=== PATIENT | female | born 1945 | race Caucasian/White ===

== ENCOUNTER 2021-06-22 14:18 | Outpatient (REF) | payer MEDICARE, SELFPAY ==
--- NOTE | ~2021-06-22 | US_ITS ---
EXAMINATION: US THYROID CLINICAL INFORMATION: Pabxno-[id number] diffuse (endemic) goiter. COMPARISON: None TECHNIQUE: Linear transducer grayscale and color Doppler examination with attention to the region of the thyroid. FINDINGS: SIZE: Measurements of the thyroid lobes and nodules are given in sagittal, anteroposterior and transverse dimensions respectively. Right Thyroid Lobe: 3.8 x 1.4 x 1.2 cm, volume 3.3 mL. Parenchyma: The gland echotexture is heterogeneous. Thyroid vascularity is increased. Left Thyroid Lobe: 3.7 x 1.0 x 1.4 cm, volume 2.7 mL. Parenchyma: The gland echotexture is heterogeneous. Thyroid vascularity is increased. Isthmus: 0.14 cm in maximum AP dimension. Estimated total number of nodules greater than or equal to 1 cm: 1. Back Wedger nodules are described as follows: 1. Location: Left inferior. Size: 1.2 x 0.6 x 0.7 cm, volume 0.25 mL. Nodule characteristics: Composition: Mixed cystic and solid (1). Echogenicity: Very hypoechoic (3). Shape: Not taller than wide (0). Margins: Smooth (0). Echogenic Foci: Punctate echogenic foci (3). ACR TI-RADS total points: 7 ACR TI-RADS category: 5 2. Location: Left inferior medial. Size: 0.8 x 0.6 x 0.6 cm, volume 0.14 mL. Nodule characteristics: Composition: Solid (2). Echogenicity: Hyperechoic (1). Shape: Not taller than wide (0). Margins: Smooth (0). Echogenic Foci: Punctate echogenic foci (3). ACR TI-RADS total points: 6 ACR TI-RADS category: 4 3. Location: Left inferior medial. Size: 0.6 x 0.3 x 0.4 cm, volume 0.04 mL. Nodule characteristics: Composition: Mixed cystic and solid (1). Echogenicity: Cannot be determined (1). Shape: Not taller than wide (0). Margins: Smooth (0). Echogenic Foci: Punctate echogenic foci (3). ACR TI-RADS total points: 5 ACR TI-RADS category: 4 4. Location: Left inferior. Size: 0.4 x 0.3 x 0.3 cm, volume 0.01 mL. Nodule characteristics: Composition: Cystic(0). ACR TI-RADS total points: 0 ACR TI-RADS category: 1 NODES: No lymphadenopathy is seen in the tissue surrounding the thyroid gland. ADDITIONAL FINDINGS: There is a focal high-grade pericolic area inferior to the left lobe. This measures 0.8 x 0.4 x 0.6 cm. It is uncertain whether this represents a lymph node. US/US thyroid IMPRESSION: Small heterogeneous hypervascular thyroid gland. Multiple left nodules. Fine needle aspiration of the largest nodule in the inferior left lobe and continued ultrasound follow-up recommended according to TI RADS criteria. ACR TI-RADS RECOMMENDATION REFERENCE: Ultrasound-guided fine-needle aspiration, followup ultrasound, no further follow up. * TR1 (0 point) and TR 2 (2 points): No FNA or follow up * TR3 (3 points): FNA if more than or equal to 2.5 cm in maximum dimension, followup ultrasound in 1, 3 and 5 years if 1.5 to 2.4 cm in maximum dimension. * TR4 (4-6 points): FNA if more than or equal to 1.5 cm in maximum dimension, followup ultrasound in 1, 2, 3 and 5 years if 1 to 1.4 cm in maximum dimension. * TR5 (more than or equal to 7 points): FNA if more than or equal to 1 cm in maximum dimension, followup ultrasound every year for 5 years if 0.5 to 0.9 cm in maximum dimension. * TR3, TR4 or TR5 nodules that are below the size threshold for follow up receive no follow up.
== END 2021-06-22 14:19 | disposition home or self-care (01) ==
LOC: HO.HMGCX 14:18
PROVIDERS: Visit Provider Internal Medicine
DX: R13.10 Dysphagia, unspecified (principal); E01.0 Iodine-deficiency related diffuse (endemic) goiter
CPT/HCPCS: 76536

== ENCOUNTER → 2021-07-21 11:22 | Outpatient (BNVA) | payer MEDICARE, SELFPAY | PROVIDERS: PCP Internal Medicine; Visit Provider Internal Medicine | DX: E04.2 Nontoxic multinodular goiter (principal); E55.9 Vitamin D deficiency, unspecified | CPT/HCPCS: Q3014 ==

== ENCOUNTER 2021-08-04 08:09 | Outpatient (REF) | payer MEDICARE, SELFPAY ==
--- NOTE | ~2021-08-04 | CT_ITS ---
EXAMINATION: CT SOFT TISSUE NECK WITHOUT CONTRAST CLINICAL INFORMATION: Nontoxic multinodular goiter COMPARISON: Previous thyroid ultrasound June 2021 TECHNIQUE: Helical imaging was performed in the axial plane with generation of coronal and sagittal reformatted images. This CT examination was performed using dose optimization techniques as appropriate, variously including the following: *Automated exposure control *Adjustment of mA and/or kV according to patient size (this includes techniques or standardized protocols for targeted exams where dose is matched to indication/reason for exam; i.e. extremities or head) *Use of iterative reconstruction technique DLP: 180 mGy-cm FINDINGS: The thyroid gland appears small. The thyroid gland is slightly heterogeneous appearing. There is a single nodule identified by CT scan in the inferior left lobe measuring 6 x 6 x 8 mm in AP transverse and longitudinal dimension. The soft tissues surrounding the thyroid gland is normal. No cervical adenopathy is seen. The salivary glands are normal. Visualized paranasal sinuses, mastoid air cells and middle ears are clear. The temporomandibular joints are normal. The patient is a edentulous. The nasal, sole and hypopharynx and larynx are normal. Visualized orbits and intracranial structures are normal. The superior mediastinum is normal. The lung apices are clear. There are degenerative changes of the cervical spine. CT/CT soft tissue neck wo con IMPRESSION: Small slightly heterogeneous thyroid gland. Solitary left inferior nodule in the left lobe appreciated by CT scan. No abnormal soft tissue in the neck adjacent to the thyroid gland or enlarged lymph nodes are seen.
[2021-08-04 09:40] LABS: Hematocrit 41.5 % (37.0-47.0); Hemoglobin 14.1 g/dl (12.0-16.0); Mean Corpuscular Hemoglobin 30.7 pg (27.0-33.0); Mean Corpuscular Volume 90.2 fL (80.0-98.0); Mean Platelet Volume 10.2 fL (9.4-12.3); Platelet Count 226 X10*3/uL (160-400); Red Cell Distribution Width 12.6 % (11.0-16.0)
[2021-08-04 10:07] LABS: Appearance Urine HAZY; Color Urine YELLOW; Glucose Urine UA NEG (NEG); Leukocyte Esterase Urine NEG (NEG); Nitrite Urine NEG (NEG); PH 7.5 (5.0-8.0); Urine Blood NEG (NEG); Urine Ketones NEG (NEG); Urine Protein NEG (NEG-TRACE)
[2021-08-04 10:12] LABS: Alanine Aminotransferase 15 U/L (0-31); Albumin Level 4.1 g/dL (3.5-5.0); Alkaline Phosphatase 64 U/L (39-117); Anion Gap 11 (12-20); Aspartate Amino Transferase 19 U/L (5-31); Bilirubin Total 1.5 mg/dL (0.0-1.0); Blood Urea Nitrogen 11 mg/dL (9-16); Calcium 9.3 mg/dL (8.4-10.2); Carbon Dioxide 30 mmol/L (22-29); Chloride 106 mmol/L (96-108); Cholesterol 176 mg/dL; Estimated Glomerular Filt Rate > 60; Glucose Fasting 89 mg/dL (60-99); HDL Cholesterol 47 mg/dL; LDL Cholesterol Calculated 100 mg/dl; Phosphorus 3.4 mg/dL (2.7-4.5); Potassium 3.6 mmol/L (3.3-5.1); Sodium 143 mmol/L (135-145); Total Protein 6.6 g/dL (6.5-8.0); Triglycerides 146 mg/dL
[2021-08-04 10:27] LABS: RBC Urine 0 /HPF (0); Squamous Epithelial Cell Urine 1+ /LPF; WBC Urine 0 /HPF (0-4)
[2021-08-04 10:28] LABS: Free T4 (Free Thyroxine) 0.91 ng/dL (0.71-1.85); Thyroid Stimulating Hormone 2.31 uIU/mL (0.32-4.0); Vitamin D 25-OH Total 37.9 ng/mL (>30)
[2021-08-05 15:36] LABS: Calcium (PTHI) 9.5 mg/dL (8.6-10.4); PTHI 41 pg/mL (16-77)
== END 2021-08-04 08:10 | disposition home or self-care (01) ==
LOC: HO.CT 08:09
PROVIDERS: PCP Internal Medicine; Visit Provider Internal Medicine
DX: E55.9 Vitamin D deficiency, unspecified (principal); E04.2 Nontoxic multinodular goiter; R13.10 Dysphagia, unspecified; K22.2 Esophageal obstruction; E04.1 Nontoxic single thyroid nodule
CPT/HCPCS: 36415; 70490; 80053; 80061; 81001; 82306; 83970; 84100; 84439; 84443; 85027

== ENCOUNTER 2022-03-10 09:33 | Outpatient (REF) | payer MEDICARE, SELFPAY ==
--- NOTE | 2022-03-10 10:27 | PM.OP ---
Brief Operative Note Date of Service: 03/10/22 Pre-op diagnosis: Multinodular Thyroid Procedure: EXAMINATION: US THYROID CLINICAL INFORMATION: Multinodular Thyroid COMPARISON: Prior TECHNIQUE: Linear transducer hercules-scale and color Doppler examination with attention to the region of the thyroid. FINDINGS: SIZE: Measurements of the thyroid lobes and nodules are given in sagittal, anteroposterior and transverse dimensions respectively. Right Thyroid Lobe: 3.2 x 1.2 x 1.3 cm, volume 2.6 mL. Parenchyma: The gland echotexture is heterogenous. Thyroid vascularity is normal. Left Thyroid Lobe: 3.6 x 1.1 x 1.4 cm, volume 2.9 mL. Parenchyma: The gland echotexture is heterogenous. Thyroid vascularity is increased. Isthmus: 0.2 cm in maximum AP dimension. RIGHT THYROID LOBE: There are no nodules. LEFT THYROID LOBE: There are 2 nodules. 1) LMP: There is a 0.93 x 0.49 x 0.56 cm mixed cystic nodule with regular margins. 2) LMP: There is a 0.7 x 0.47 x 0.58 cm solid isoechoic nodule with multiple areas of colloid with comet tail artifact. Margins are regular. NODES: No lymphadenopathy is seen in the tissue surrounding the thyroid gland. Surgeon: Julissa Mustafa, DO Was an Computer Operations Supervisor used for this Procedure?: No Estimated blood loss (mL): 0
[2022-03-10] MEDS: Lidocaine HCl 1 % MPF 5 ML VIAL SUBCUT (12:23)
== END 2022-03-10 09:34 | disposition home or self-care (01) ==
LOC: HO.US 09:33
PROVIDERS: Visit Provider Internal Medicine
DX: E04.2 Nontoxic multinodular goiter (principal)
CPT/HCPCS: 10006; 76536

== ENCOUNTER → 2022-03-24 12:34 | Outpatient (BNVA) | payer MEDICARE, SELFPAY | PROVIDERS: PCP Internal Medicine; Visit Provider Internal Medicine | DX: E04.2 Nontoxic multinodular goiter (principal); E55.9 Vitamin D deficiency, unspecified | CPT/HCPCS: 99212 ==

== ENCOUNTER 2022-07-29 07:27 | Outpatient (REF) | payer MEDICARE, SELFPAY ==
[2022-07-29 11:34] LABS: MANUAL DIFF FLAG NO
[2022-07-29 11:43] LABS: Basophils Percent Auto 0.5 % (0-2); Eosinophils Absolute Auto 0.1 X10*3/uL (0.0-0.4); Eosinophils Percent Auto 2.5 % (0-4); Hematocrit 42.5 % (37.0-47.0); Hemoglobin 14.4 g/dl (12.0-16.0); Imm Gran Abs Auto 0.02 X10*3/uL (0.00-0.03); Imm Gran Pct Auto 0.4 % (0.0-0.4); Lymphocytes Absolute Auto 2.6 X10*3/uL (1.2-4.9); Lymphocytes Percent Auto 45.9 % (20-40); Mean Corpuscular HGB Conc 33.9 g/dl (31.0-35.0); Mean Corpuscular Hemoglobin 30.3 pg (27.0-33.0); Mean Corpuscular Volume 89.3 fL (80.0-98.0); Mean Platelet Volume 10.7 fL (9.4-12.3); Monocytes Absolute Auto 0.5 X10*3/uL (0.1-1.2); Neutrophils Absolute Auto 2.4 x10*3/uL (2.0-8.3); Neutrophils Percent Auto 41.7 % (45-73); Platelet Count 217 X10*3/uL (160-400); Red Blood Count 4.76 X10*6/uL (4.20-5.50); Red Cell Distribution Width 12.6 % (11.0-16.0); White Blood Count 5.7 X10*3/uL (4.8-10.8)
[2022-07-29 12:10] LABS: Alanine Aminotransferase 14 U/L (0-31); Albumin Level 3.9 g/dL (3.5-5.0); Alkaline Phosphatase 69 U/L (39-117); Anion Gap 12 (12-20); Aspartate Amino Transferase 17 U/L (5-31); Bilirubin Total 1.4 mg/dL (0.0-1.0); Blood Urea Nitrogen 11 mg/dL (9-16); Calcium 9.2 mg/dL (8.4-10.2); Carbon Dioxide 25 mmol/L (22-29); Chloride 109 mmol/L (96-108); Cholesterol 174 mg/dL; Estimated Glomerular Filt Rate > 60; Glucose Fasting 96 mg/dL (60-99); HDL Cholesterol 44 mg/dL; LDL Cholesterol Calculated 99 mg/dl; Potassium 3.7 mmol/L (3.3-5.1); Sodium 142 mmol/L (135-145); Total Protein 6.5 g/dL (6.5-8.0); Triglycerides 156 mg/dL
[2022-07-29 12:28] LABS: TSH reflex Free T4 2.99 uIU/mL (0.32-4.0); Vitamin D 25-OH Total 55.5 ng/mL (>30)
== END 2022-07-29 07:28 | disposition home or self-care (01) ==
LOC: HO.HMGCLDS 07:27
PROVIDERS: PCP Internal Medicine; Visit Provider Internal Medicine
DX: E04.2 Nontoxic multinodular goiter (principal); E55.9 Vitamin D deficiency, unspecified
CPT/HCPCS: 36415; 80053; 80061; 82306; 84443; 85025

== ENCOUNTER 2023-08-28 07:32 | Outpatient (REF) | payer MEDICARE, SELFPAY ==
[2023-08-28 10:29] LABS: Hematocrit 43.3 % (37.0-47.0); Hemoglobin 14.8 g/dl (12.0-16.0); Mean Corpuscular HGB Conc 34.2 g/dl (31.0-35.0); Mean Corpuscular Hemoglobin 30.6 pg (27.0-33.0); Mean Corpuscular Volume 89.5 fL (80.0-98.0); Mean Platelet Volume 10.6 fL (9.4-12.3); Platelet Count 221 X10*3/uL (160-400); Red Blood Count 4.84 X10*6/uL (4.20-5.50); Red Cell Distribution Width 12.8 % (11.0-16.0); White Blood Count 6.4 X10*3/uL (4.8-10.8)
[2023-08-28 10:45] LABS: Alanine Aminotransferase 14 U/L (0-31); Albumin Level 4.1 g/dL (3.5-5.0); Alkaline Phosphatase 64 U/L (39-117); Anion Gap 14 (12-20); Aspartate Amino Transferase 18 U/L (5-31); Bilirubin Total 1.1 mg/dL (0.0-1.0); Blood Urea Nitrogen 13 mg/dL (9-16); Calcium 9.3 mg/dL (8.4-10.2); Carbon Dioxide 25 mmol/L (22-29); Chloride 108 mmol/L (96-108); Cholesterol 180 mg/dL (<200); Estimated Glomerular Filt Rate > 60; Glucose Fasting 96 mg/dL (60-99); HDL Cholesterol 42 mg/dL (>40); LDL Cholesterol Calculated 101 mg/dL (<100); Potassium 3.7 mmol/L (3.3-5.1); Sodium 143 mmol/L (135-145); Total Protein 6.9 g/dL (6.5-8.0); Triglycerides 187 mg/dL (<150)
[2023-08-28 11:03] LABS: TSH reflex Free T4 2.89 uIU/mL (0.32-4.0); Vitamin D 25-OH Total 104.1 ng/mL (>30)
== END 2023-08-28 07:33 | disposition home or self-care (01) ==
LOC: HO.HMGCLDS 07:32
PROVIDERS: PCP Internal Medicine; Visit Provider Internal Medicine
DX: Z00.00 Encounter for general adult medical examination without abnormal findings (principal); E55.9 Vitamin D deficiency, unspecified; E04.2 Nontoxic multinodular goiter
CPT/HCPCS: 36415; 80053; 80061; 82306; 84443; 85027

== ENCOUNTER 2023-08-31 11:40 | Outpatient (AMB) | payer MEDICARE, SELFPAY ==
--- NOTE | 2023-08-31 12:12 | MHC.PC.OV ---
Vital Signs 08/31/23 12:15 Height 5 ft 1.5 in Weight 129 lb 4 oz BMI 24.0 BP 138/82 Blood Pressure Location Lt brachial Position Sitting Pulse 75 Pulse Source Pulse Oximeter Pulse Oximetry (%) 96 Oxygen Delivery Method Room Air Intake Visit Reasons: PE Allergies No Known Allergies Allergy (Verified 08/31/23 12:17) Medication List - Last Reconciled 08/31/23 by Kizzy Thorpe MD ascorbic acid (vitamin C) mg PO cholecalciferol (vitamin D3) 25 mcg PO DAILY famotidine 40 mg PO DAILY lysine 500 mg PO DAILY multivitamin 1 tab PO DAILY Tobacco use date assessed: 08/31/23 Fall risk assessment: No Falls in past year Last assessed Fall Risk: 08/31/23 Dental Screening Dental Screen Date: 08/31/23 Did you have a dental visit in the last 12 months?: Yes Did you have a dental problem in the last 6 months where you did not have access to dental care?: No Was dental information given to patient?: Patient has dentist HPI PE HPI Details Pt presents for PE. PFSH Medical History (Updated 08/31/23 @ 13:41 by Kizzy Thorpe MD) Vitamin D deficiency Multinodular thyroid Thyroid nodule Anxiety Dysphagia Normal breast exam Bladder prolapse, female, acquired Esophageal stricture Surgical History S/P hysterectomy Family History Father No problems noted. 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 How often do you have a drink containing alcohol?: Never 3. How often do you have six or more drinks on one occasion?: Never Total Score: 0 Score Reviewed/Action Taken: Yes ROSAMARIA-7 AMB Questionnaire ROSAMARIA-7 Date ROSAMARIA - 7 assessed: 07/28/22 Feeling nervous, anxious, or on edge: 0 = Not at all Not being able to stop or control worryin = Not at all Worrying too much about different things: 0 = Not at all Trouble relaxin = Not at all Being so restless that it is hard to sit still: 0 = Not at all Becoming easily annoyed or irritable: 0 = Not at all Feeling afraid as if something awful might happen: 0 = Not at all Total ROSAMARIA-7 score (0-4 normal; 5-9 mild; 10-14 moderate; 15-21 severe): 0 Source: Developed by Drs. Rd Farley, Seble Motta, Darshan Robbins and colleagues, with an educational amanda from [employer]. Review of Systems Const All systems reviewed & are unremarkable except as noted in HPI and below Eyes Reports no additional complaints ENT Reports no additional complaints Card Reports no additional complaints Resp Reports no additional complaints GI Reports no additional complaints Reports no additional complaints Physical exam (Primary Care) Vital Signs: Last Vital Signs Pulse 75 08/31/23 12:15 BP 138/82 08/31/23 12:15 Pulse Ox 96 08/31/23 12:15 Oxygen Delivery Method Room Air 08/31/23 12:15 BMI result Body Mass Index 24.0 Tobacco/Smoking Status: Tobacco use Status Tobacco use date assessed 08/31/23 08/31/23 12:18 Patient Tobacco Use Status Former Tobacco user 08/31/23 12:13 e-Cigarette/Vaping Use Never Used 08/31/23 12:13 Thrive Assessment: Date of Thrive Assessment Date Thrive assessed 07/28/22 08/31/23 12:13 Const General: no acute distress HENMT Head: Yes normal to inspection General nose exam: Normal external nose present Face and sinus: Yes normal facial exam Eyes General: appearance normal, both eyes and all related structures Neck Neck: Yes supple Resp Effort & Inspection: normal respiratory effort Auscultation: clear to auscultation bilaterally Cardio Rhythm: regular rhythm Heart sounds: S1 normal heart sound present and S2 normal heart sound present GI Inspection: Yes normal to inspection Palpation (GI): Soft to palpation Percussion: Yes normal to percussion Auscultation: normal bowel sounds Assessment and Plan Assessment & Plan (1) Postmenopausal: Code(s): Z78.0 - Asymptomatic menopausal state Plan: CHECK DEXA CONTINUE VITAMIN-D (2) Thyroid nodule: Comment: Patient needs annual thyroid ultrasound to follow-up on small thyroid nodule recommended by endocrinology Code(s): E04.1 - Nontoxic single thyroid nodule Plan: Schedule thyroid ultrasound (3) Annual physical exam: Code(s): Z00.00 - Encounter for general adult medical examination without abnormal findings Plan: Well-balanced diet regular physical activity discussed with the patient return in 1 year (4) Esophageal stricture: Comment: Jim Joel S/P EGD dilation 02/07, 05/10, small hiatal hernia s/p dilation 2023 Code(s): K22.2 - Esophageal obstruction Plan: Follow-up with GI Orders: Orders XR DEXA axial skeleton Today Z78.0 - Asymptomatic menopausal state US thyroid Today E04.1 - Nontoxic single thyroid nodule Comprehensive Rhodelia. Panel Fast 1 Year E55.9 - Vitamin D deficiency, unspecified, K22.2 - Esophageal obstruction, Z00.00 - Encounter for general adult medical examination without abnormal findings Complete Blood Count Auto Diff 1 Year E55.9 - Vitamin D deficiency, unspecified, K22.2 - Esophageal obstruction, Z00.00 - Encounter for general adult medical examination without abnormal findings Lipid Panel 1 Year E55.9 - Vitamin D deficiency, unspecified, K22.2 - Esophageal obstruction, Z00.00 - Encounter for general adult medical examination without abnormal findings TSH reflex Free T4 1 Year E55.9 - Vitamin D deficiency, unspecified, K22.2 - Esophageal obstruction, Z00.00 - Encounter for general adult medical examination without abnormal findings Vitamin D 25-OH Total 1 Year E55.9 - Vitamin D deficiency, unspecified, K22.2 - Esophageal obstruction, Z00.00 - Encounter for general adult medical examination without abnormal findings UA w Microscopic 1 Year E55.9 - Vitamin D deficiency, unspecified, K22.2 - Esophageal obstruction, Z00.00 - Encounter for general adult medical examination without abnormal findings Coding Level of Care Code Est Pt Prev Care >65y(28350) Diagnoses Postmenopausal Z78.0 Thyroid nodule E04.1 Annual physical exam Z00.00 Esophageal stricture K22.2
[2023-08-31 12:15] VITALS: BP 138/82; PULSE 75; O2SAT 96; BMI 24.0
== END 2023-08-31 13:12 | disposition home or self-care (01) ==
PROVIDERS: PCP Internal Medicine; Visit Provider Internal Medicine
DX: Z78.0 Asymptomatic menopausal state (principal); E04.1 Nontoxic single thyroid nodule; Z00.00 Encounter for general adult medical examination without abnormal findings; K22.2 Esophageal obstruction
CPT/HCPCS: 99397

== ENCOUNTER 2023-09-27 09:55 | Outpatient (REF) | payer MEDICARE, SELFPAY ==
--- NOTE | ~2023-09-27 | US_ITS ---
EXAMINATION: US THYROID CLINICAL INFORMATION: Nontoxic single thyroid nodule. COMPARISON: CT soft tissue neck 08/04/2021. Ultrasound soft tissue head/neck thyroid dated 06/22/2021. TECHNIQUE: Linear transducer grayscale and color Doppler examination with attention to the region of the thyroid. FINDINGS: SIZE: Measurements of the thyroid lobes and nodules are given in sagittal, anteroposterior and transverse dimensions respectively. Right Thyroid Lobe: 3.0 x 1.7 x 1.3 cm, volume 3.5 mL. Previously 3.8 x 1.4 x 1.2 cm, volume 3.3 mL. Parenchyma: The gland echotexture is heterogeneous. Thyroid vascularity is increased. Left Thyroid Lobe: 3.3 x 1.0 x 1.2 cm, volume 2.1 mL. Previously 3.7 x 1.0 x 1.4 cm, volume 2.7 mL. Parenchyma: The gland echotexture is heterogeneous. Thyroid vascularity is increased. Isthmus: 0.3 cm in maximum AP dimension. Previously 0.1 cm. Estimated total number of nodules greater than or equal to 1 cm: 1. Printer Operator nodules are described as follows: 1. Location: Left inferior. Size: 1.1 x 0.5 x 0.5 cm, volume 0.1 mL. Previously: 1.2 x 0.6 x 0.7 cm, volume 0.3 mL. Nodule characteristics: Composition: Mixed cystic and solid (1). Echogenicity: Hypoechoic (2). Shape: Not taller than wide (0). Margins: Irregular (2). Echogenic Foci: Punctate echogenic foci (3). ACR TI-RADS total points: 8. Previous: 7. ACR TI-RADS category: 5. Previous: 5. Significant change in size (>/= 20% in 2 dimensions and minimal increase of 2 mm or 50% or greater increase in volume): No Change in features: Yes Change in ACR TI-RADS risk category: No 2. Location: Left inferior. Size: 0.7 x 0.5 x 0.6 cm, volume 0.1 mL. Previously: 0.8 x 0.6 x 0.6 cm, volume 0.1 mL. Nodule characteristics: Composition: Solid (2). Echogenicity: Hyperechoic (1). Shape: Not taller than wide (0). Margins: Smooth (0). Echogenic Foci: Punctate echogenic foci (3). ACR TI-RADS total points: 6. Previous: 6. ACR TI-RADS category: 4. Previous: 4. Significant change in size (>/= 20% in 2 dimensions and minimal increase of 2 mm or 50% or greater increase in volume): No Change in features: No Change in ACR TI-RADS risk category: No 3. Location: Left inferior. Size: 0.4 x 0.3 x 0.3 cm, volume 0.01 mL. Previously: 0.4 x 0.3 x 0.3 cm, volume 0.01 mL. Nodule characteristics: Composition: Cystic(0). ACR TI-RADS total points: 0. Previous: 0. ACR TI-RADS category: 1. Previous: 1. Significant change in size (>/= 20% in 2 dimensions and minimal increase of 2 mm or 50% or greater increase in volume): No Change in features: No Change in ACR TI-RADS risk category: No NODES: 0.6 x 0.5 x 0.6 cm hyperechoic area redemonstrated inferior to the left thyroid lobe, previously 0.8 x 0.4 x 0.6 cm. This lesion is is difficult to visualize due to overlying structures. Differential considerations include atypical lymph node, versus less likely atypical parathyroid/adenoma or other lesion. US/US thyroid IMPRESSION: 1. A 1.1 cm left lower pole TR5 thyroid nodule meets criteria for biopsy as previously noted. Fine-needle aspiration recommended if not already performed. 2. Multiple additional left subcentimeter thyroid nodules as detailed above. 3. A 0.6 x 0.5 x 0.6 cm hyperechoic area redemonstrated inferior to the left thyroid lobe, previously 0.8 x 0.4 x 0.6 cm. This lesion is difficult to visualize due to overlying structures. Differential considerations include atypical lymph node, versus less likely atypical parathyroid/adenoma or other lesion. ACR TI-RADS RECOMMENDATION REFERENCE: Ultrasound-guided fine-needle aspiration, follow up ultrasound, no further followup. * TR1 (0 point) and TR2 (2 points): No FNA or followup * TR3 (3 points): FNA if more than or equal to 2.5 cm in maximum dimension, follow up ultrasound in 1, 3 and 5 years if 1.5 to 2.4 cm in maximum dimension. * TR4 (4-6 points): FNA if more than or equal to 1.5 cm in maximum dimension, follow up ultrasound in 1, 2, 3 and 5 years if 1 to 1.4 cm in maximum dimension. * TR5 (more than or equal to 7 points): FNA if more than or equal to 1 cm in maximum dimension, follow up ultrasound every year for 5 years if 0.5 to 0.9 cm in maximum dimension. * TR3, TR4 or TR5 nodules that are below the size threshold for follow up receive no followup.
--- NOTE | ~2023-09-27 | MM_ITS ---
EXAMINATION: BONE DENSITOMETRY CLINICAL INDICATION: Menopause. COMPARISON: This is the patient's baseline examination. TECHNIQUE: Using a [employer] DXA System (software version: 13.1) manufactured by [employer], dual-energy x-ray absorptiometry was performed of the lumbar spine and left hip. The images are of good technical quality. Summary results are attached. FINDINGS: LEFT FEMUR, NECK: BMD 0.795 g/cm2, Z-score 0.5, T-score -1.8, osteopenia. LEFT FEMUR, TOTAL: BMD 0.831 g/cm2, Z-score 0.7, T-score -1.4, osteopenia. AP SPINE L1-L4: BMD 0.973 g/cm2, Z-score 0.3, T-score -1.7, osteopenia. IDENTIFIED RISK FACTORS: Early menopause, hysterectomy, left oophorectomy, secondary osteoporosis. HISTORY OF FRACTURE: None listed. MEDICATIONS: Calcium or multivitamin. Vitamin D. MM/XR DEXA axial skeleton IMPRESSION: 1. DIAGNOSIS: Osteopenia based on the lowest T-score value of -1.8 in the femoral neck applying World Health Organization criteria. 2. 10-YEAR FRACTURE RISK PREDICTION, FRAX: Major osteoporotic fracture (clinical spine, forearm, hip or shoulder) 13.5%. Hip fracture 3.4%. 3. Treatment Recommendations: NOF guidelines recommend consideration for treatment in postmenopausal women and men age 50 and older presenting with the following: -A hip or vertebral (clinical or morphometric) fracture. -T-score less than or equal to -2.5 at the femoral neck or spine after appropriate evaluation to exclude secondary causes. -Low bone mass at the hip or spine and a 10-year fracture probability by FRAX of greater than or equal to 3% for hip fracture or greater than or equal to 20% for major osteoporotic fracture based on the [place] adapted WHO algorithm. 4. Other Recommendations: All treatment decisions require clinical judgment and consideration of individual patient factors, including patient preferences, comorbidities, previous drug use, risk factors not captured in the FRAX model (e.g. frailty, falls, vitamin D deficiency, increased bone turnover, interval significant decline in bone density) and possible under or overestimation of fracture risk by FRAX. Additional medical evaluation for secondary cause of low bone mineral density may be appropriate. FUTURE SCAN RECOMMENDATION: People with diagnosed cases of osteoporosis or at high risk for fracture should have regular bone mineral density tests. For patients eligible for Medicare, routine testing is allowed once every 2 years. The testing frequency can be increased to one year for patients who have rapidly progressing disease, those who are receiving or discontinuing medical therapy to restore bone mass, or have additional risk factors.
== END 2023-09-27 09:56 | disposition home or self-care (01) ==
LOC: HO.US 09:55
PROVIDERS: PCP Internal Medicine; Visit Provider Internal Medicine
DX: Z13.820 Encounter for screening for osteoporosis (principal); Z78.0 Asymptomatic menopausal state; E04.1 Nontoxic single thyroid nodule
CPT/HCPCS: 76536; 77080

== ENCOUNTER 2023-10-13 09:40 | Outpatient (AMB) | payer MEDICARE, SELFPAY ==
[2023-10-13 09:53] VITALS: BP 128/80; PULSE 86; BMI 23.8
--- NOTE | 2023-10-13 09:53 | MHC.OFFVIS ---
Vital Signs 10/13/23 09:53 Height 5 ft 1.5 in Weight 128 lb 4.944 oz BMI 23.8 BP 128/80 Blood Pressure Location Lt brachial Position Sitting Pulse 86 Pulse Source Pulse Oximeter Intake Visit Reasons: Thyroid nodule/LVM Intake Note: Patient present today for Thyroid nodule office visit. Health Education Specialist Required: No Accompanied by: Self / Same As Patient Allergies No Known Allergies Allergy (Verified 10/13/23 09:57) Medication List - Last Reconciled 10/13/23 by Ela Summers MD ascorbic acid (vitamin C) mg PO cholecalciferol (vitamin D3) 25 mcg PO DAILY famotidine 40 mg PO DAILY lysine 500 mg PO DAILY multivitamin 1 tab PO DAILY HPI Comments Details: 78 YO F with no significant PMHx who is seen in F/U for a NTMNG. She was previously following with Dr. Hargrove and last visit was in April 14. HPI from prior visit She had dysphagia for approximately 2 years. She had an extensive GI workup and was found to have a esophageal stricture which was dilated on 2 separate occasions, with no improvement in her dysphagia. She then had a thyroid US 06/22/2021 to assess if the thyroid was the cause of her dysphagia, and this revealed multiple thyroid nodules and a diffusely heterogenous thyroid gland. Dr. Hargrove repeat her thyroid US 03/10/2022 with no nodules meeting indication for FNA biopsy. and she was asked to follow up with PCP for repeat US surveillance. Today : She does report dysphagia and the sensation of constantly having to clear her throat. She does report a full sensation in her neck, but denies any difficulty breathing while lying flat. Feels like the dysphagia is somewhat better controlled Denies any palpitations, tremors, weight loss, frequent bowel movements. Denies hair loss, dry skin, heat or cold intolerance, weight gain, confusion. Denies any history of head or neck irradiation. Denies any family history of thyroid cancer. Had biopsy of nodules in the past? Thyroid US: 06/22/2021 FINDINGS: ? SIZE: Measurements of the thyroid lobes and nodules are given in sagittal, anteroposterior and transverse dimensions respectively. Right Thyroid Lobe: 3.8 x 1.4 x 1.2 cm, volume 3.3 mL. Parenchyma: The gland echotexture is heterogeneous. Thyroid vascularity is increased. Left Thyroid Lobe: 3.7 x 1.0 x 1.4 cm, volume 2.7 mL. Parenchyma: The gland echotexture is heterogeneous. Thyroid vascularity is increased. Isthmus: 0.14 cm in maximum AP dimension. Estimated total number of nodules greater than or equal to 1 cm: 1. Sternman nodules are described as follows: 1. Location: Left inferior. ?? ? Size: 1.2 x 0.6 x 0.7 cm, volume 0.25 mL. ?? ? Nodule characteristics: ?? ? Composition: Mixed cystic and solid (1). ?? ? Echogenicity: Very hypoechoic (3). ?? ? Shape: Not taller than wide (0). ?? ? Margins: Smooth (0). ?? ? Echogenic Foci: Punctate echogenic foci (3). ?? ? ACR TI-RADS total points: 7 ?? ? ACR TI-RADS category: 5 2. Location: Left inferior medial. ?? ? Size: 0.8 x 0.6 x 0.6 cm, volume 0.14 mL. ?? ? Nodule characteristics: ?? ? Composition: Solid (2). ?? ? Echogenicity: Hyperechoic (1). ?? ? Shape: Not taller than wide (0). ?? ? Margins: Smooth (0). ?? ? Echogenic Foci: Punctate echogenic foci (3). ?? ? ACR TI-RADS total points: 6 ?? ? ACR TI-RADS category: 4 3. Location: Left inferior medial. ?? ? Size: 0.6 x 0.3 x 0.4 cm, volume 0.04 mL. ?? ? Nodule characteristics: ?? ? Composition: Mixed cystic and solid (1). ?? ? Echogenicity: Cannot be determined (1). ?? ? Shape: Not taller than wide (0). ?? ? Margins: Smooth (0). ?? ? Echogenic Foci: Punctate echogenic foci (3). ?? ? ACR TI-RADS total points: 5 ?? ? ACR TI-RADS category: 4 4. Location: Left inferior. ?? ? Size: 0.4 x 0.3 x 0.3 cm, volume 0.01 mL. ?? ? Nodule characteristics: ?? ? Composition: Cystic(0). ?? ? ACR TI-RADS total points: 0 ?? ? ACR TI-RADS category: 1 NODES: No lymphadenopathy is seen in the tissue surrounding the thyroid gland. ADDITIONAL FINDINGS: There is a focal high-grade pericolic area inferior to the left lobe. This measures 0.8 x 0.4 x 0.6 cm. It is uncertain whether this represents a lymph node. [facility] Medical History (Updated 10/13/23 @ 10:33 by Ela Summers MD) Vitamin D deficiency Multinodular thyroid Thyroid nodule Anxiety Dysphagia Normal breast exam Bladder prolapse, female, acquired Esophageal stricture Surgical History S/P hysterectomy Family History Father No problems noted. 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, well balanced diet Housing: House Patient Tobacco Use Status: Former Tobacco user Years Smoked: 15 years e-Cigarette/Vaping Use: Never Used Current occupational status: employed Cognitive needs: No Hearing needs: No Vision needs: Yes Results Reviewed Results Reviewed: Laboratory Tests 07/29/22 08/28/23 07:32 07:58 TSH 2.99 2.89 [place] [id number] Ultrasound Report Signed Patient: Renea Abraham MR#: [id number] : 1945 Acct:[id number] Age/Sex: 78 / F ADM Date: 09/27/23 Loc: HO.US Attending Dr: Kizzy Thorpe MD Ordering Physician: Kizzy Thorpe MD Date of Service: 09/27/23 Procedure(s): US thyroid Accession Number(s): [id number] cc: Kizzy Thorpe MD~ EXAMINATION: US THYROID CLINICAL INFORMATION: Nontoxic single thyroid nodule. COMPARISON: CT soft tissue neck 08/04/2021. Ultrasound soft tissue head/neck thyroid dated 06/22/2021. TECHNIQUE: Linear transducer grayscale and color Doppler examination with attention to the region of the thyroid. FINDINGS: SIZE: Measurements of the thyroid lobes and nodules are given in sagittal, anteroposterior and transverse dimensions respectively. Right Thyroid Lobe: 3.0 x 1.7 x 1.3 cm, volume 3.5 mL. Previously 3.8 x 1.4 x 1.2 cm, volume 3.3 mL. Parenchyma: The gland echotexture is heterogeneous. Thyroid vascularity is increased. Left Thyroid Lobe: 3.3 x 1.0 x 1.2 cm, volume 2.1 mL. Previously 3.7 x 1.0 x 1.4 cm, volume 2.7 mL. Parenchyma: The gland echotexture is heterogeneous. Thyroid vascularity is increased. Isthmus: 0.3 cm in maximum AP dimension. Previously 0.1 cm. Estimated total number of nodules greater than or equal to 1 cm: 1. Sternman nodules are described as follows: 1. Location: Left inferior. Size: 1.1 x 0.5 x 0.5 cm, volume 0.1 mL. Previously: 1.2 x 0.6 x 0.7 cm, volume 0.3 mL. Nodule characteristics: Composition: Mixed cystic and solid (1). Echogenicity: Hypoechoic (2). Shape: Not taller than wide (0). Margins: Irregular (2). Echogenic Foci: Punctate echogenic foci (3). ACR TI-RADS total points: 8. Previous: 7. ACR TI-RADS category: 5. Previous: 5. Significant change in size (>/= 20% in 2 dimensions and minimal increase of 2 mm or 50% or greater increase in volume): No Change in features: Yes Change in ACR TI-RADS risk category: No 2. Location: Left inferior. Size: 0.7 x 0.5 x 0.6 cm, volume 0.1 mL. Previously: 0.8 x 0.6 x 0.6 cm, volume 0.1 mL. Nodule characteristics: Composition: Solid (2). Echogenicity: Hyperechoic (1). Shape: Not taller than wide (0). Margins: Smooth (0). Echogenic Foci: Punctate echogenic foci (3). ACR TI-RADS total points: 6. Previous: 6. ACR TI-RADS category: 4. Previous: 4. Significant change in size (>/= 20% in 2 dimensions and minimal increase of 2 mm or 50% or greater increase in volume): No Change in features: No Change in ACR TI-RADS risk category: No 3. Location: Left inferior. Size: 0.4 x 0.3 x 0.3 cm, volume 0.01 mL. Previously: 0.4 x 0.3 x 0.3 cm, volume 0.01 mL. Nodule characteristics: Composition: Cystic(0). ACR TI-RADS total points: 0. Previous: 0. ACR TI-RADS category: 1. Previous: 1. Significant change in size (>/= 20% in 2 dimensions and minimal increase of 2 mm or 50% or greater increase in volume): No Change in features: No Change in ACR TI-RADS risk category: No NODES: 0.6 x 0.5 x 0.6 cm hyperechoic area redemonstrated inferior to the left thyroid lobe, previously 0.8 x 0.4 x 0.6 cm. This lesion is is difficult to visualize due to overlying structures. Differential considerations include atypical lymph node, versus less likely atypical parathyroid/adenoma or other lesion. US/US thyroid IMPRESSION: 1. A 1.1 cm left lower pole TR5 thyroid nodule meets criteria for biopsy as previously noted. Fine-needle aspiration recommended if not already performed. 2. Multiple additional left subcentimeter thyroid nodules as detailed above. 3. A 0.6 x 0.5 x 0.6 cm hyperechoic area redemonstrated inferior to the left thyroid lobe, previously 0.8 x 0.4 x 0.6 cm. This lesion is difficult to visualize due to overlying structures. Differential considerations include atypical lymph node, versus less likely atypical parathyroid/adenoma or other lesion. ACR TI-RADS RECOMMENDATION REFERENCE: Ultrasound-guided fine-needle aspiration, follow up ultrasound, no further followup. * TR1 (0 point) and TR2 (2 points): No FNA or followup * TR3 (3 points): FNA if more than or equal to 2.5 cm in maximum dimension, follow up ultrasound in 1, 3 and 5 years if 1.5 to 2.4 cm in maximum dimension. * TR4 (4-6 points): FNA if more than or equal to 1.5 cm in maximum dimension, follow up ultrasound in 1, 2, 3 and 5 years if 1 to 1.4 cm in maximum dimension. * TR5 (more than or equal to 7 points): FNA if more than or equal to 1 cm in maximum dimension, follow up ultrasound every year for 5 years if 0.5 to 0.9 cm in maximum dimension. * TR3, TR4 or TR5 nodules that are below the size threshold for follow up receive no followup. Assessment & Plan Assessment & Plan (1) Multinodular thyroid: Code(s): E04.2 - Nontoxic multinodular goiter Category: Medical Plan: 78-year-old female with no personal history of head or neck radiation, no family history of thyroid cancer, who is coming in today for follow up of nontoxic nodular goiter. Ultrasound in 2021 revealed left-sided thyroid nodules, mostly subcentimeter in size, subsequently repeat ultrasound by Dr. Hargrove in 2022 did not show any nodules, hence she has never had an FNA. She has longstanding difficulty swallowing but has history of esophageal strictures and has undergone multiple dilatations, she says these are more controlled now. Most recent ultrasound from October 13 shows a suspicious appearing 1 cm left lobe nodule, TR 5 due to punctate echogenic foci. When I reviewed the images, this is mixed cystic solid nodule, with almost spongiform appearance and the echogenic foci could represent colloid. It is however taller than wide on the transverse section, making it more suspicious. I explained that it is common to have thyroid nodules. About 95% of the time these nodules are benign. However if the nodule is > 1 cm in size or suspicious on ultrasound then a fine need aspiration biopsy is recommended. We discussed that a FNAB involves 4-5 passes with a small gauge needle and material obtained is sent off for cytology.If the cytopathology is benign then the nodule will be followed annually with repeat ultrasounds. However if it is suspicious or malignant, we will need to discuss further management. Indeterminate cytology can be further investigated with repeat FNA, genetic testing or empiric lobectomy. Malignant cytology is managed with either lobectomy or total thyroidectomy. We discussed briefly that thyroid cancer is, in most patients, an indolent disease that does not affect mortality. I explained to the patient that a benign result on FNA reduces the chance of malignancy to less than 3%. Explained that her other options are repeat ultrasound in 6 months or lobectomy. Patient explains that this year has been tough on her and she has had a lot of medical treatments for her skin cancers. She would like to wait 6 months for repeat ultrasound and then consider biopsy of this nodule. The mutually agreed that that is also okay and will bring her back in for repeat ultrasound in 6 months with a follow up appointment with me after. Plan: -ordered ultrasound thyroid in 6 months -ordered TSH, free T4 to be done in 6 months -follow up in 6 months with me in office after thyroid ultrasound Plan I spent 30 minutes in reviewing the record, seeing the patient and documenting in the medical record. Orders: Orders US thyroid 6 Months E04.2 - Nontoxic multinodular goiter Free T4 (Free Thyroxine) 6 Months E04.2 - Nontoxic multinodular goiter Thyroid Stimulating Hormone 6 Months E04.2 - Nontoxic multinodular goiter Patient Instructions: Do blood work and thyroid ultrasound in 6 months before your follow up apppointment Coding Level of Care Code Est Pt Level 4 (41935) Diagnoses Multinodular thyroid E04.2 Time Spent (min) 30
== END 2023-10-13 10:35 | disposition home or self-care (01) ==
PROVIDERS: PCP Internal Medicine; Visit Provider Student in an Organized Health Care Education/Training Program
DX: E04.2 Nontoxic multinodular goiter (principal)
CPT/HCPCS: 99214

== ENCOUNTER → 2023-10-13 09:40 | Outpatient (BNVA) | payer MEDICARE, SELFPAY | PROVIDERS: PCP Internal Medicine; Visit Provider Student in an Organized Health Care Education/Training Program | DX: E04.2 Nontoxic multinodular goiter (principal) | CPT/HCPCS: 99212 ==

== ENCOUNTER 2023-11-06 08:33 | Outpatient (AMB) | payer MEDICARE, SELFPAY ==
[2023-11-06 08:43] VITALS: BP 120/72; PULSE 74; TEMP 36.9; O2SAT 98; BMI 23.8
--- NOTE | 2023-11-06 08:43 | AM.OFFWIN_ITS ---
Intake Vital Signs 11/06/23 08:43 Height 5 ft 1.5 in Weight 128 lb BMI 23.8 BP 120/72 Blood Pressure Location Rt brachial Position Sitting Pulse 74 Pulse Source Pulse Oximeter Temp 98.4 F Temp Source Oral Pulse Oximetry (%) 98 Oxygen Delivery Method Room Air Intake Visit Reasons: EP-body chills Intake Note: Patient here because she got stung on her back twice last week and has not been felling right, has chills. Patient Tobacco Use Status: Former Tobacco user Allergies No Known Allergies Allergy (Verified 11/06/23 08:46) Do you need a note to return to daycare/school/sports/work: No HPI HPI Comments History of Present Illness Details Patient is a 78-year-old female who is complaining of night sweats and chills randomly since she was bit on her upper back twice by some kind of bee 5 days ago. She states she has never been bitten by any kind of be before. She states the 1st few days after it happened her upper back where she was bit was a little bit warm and itchy, but it is no longer warm or itchy. However she states she has been waking up in the middle of the night 5 days ago and had to change her night shirt 4 times because she soaked through it. This happened again last night but did not occur in between. She states she also had some spots removed by Dermatology on the upper back. She denies any cough or congestion or other upper respiratory symptoms, she also denies any nausea vomiting or diarrhea. She did test for COVID and that was negative [facility] Medical History (Updated 11/06/23 @ 09:27 by Lashonda Sutton PA-C) Vitamin D deficiency Multinodular thyroid Thyroid nodule Anxiety Dysphagia Normal breast exam Bladder prolapse, female, acquired Esophageal stricture Surgical History S/P hysterectomy Family History Father No problems noted. 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 Housing: House Patient Tobacco Use Status: Former Tobacco user Years Smoked: 15 years e-Cigarette/Vaping Use: Never Used Current occupational status: employed Cognitive needs: No Hearing needs: No Vision needs: Yes Review of Systems Const All systems reviewed & are unremarkable except as noted in HPI and below Physical Exam Vital Signs: Last Vital Signs Temp 98.4 F 11/06/23 08:43 Pulse 74 11/06/23 08:43 BP 120/72 11/06/23 08:43 Pulse Ox 98 11/06/23 08:43 Oxygen Delivery Method Room Air 11/06/23 08:43 BMI result Body Mass Index 23.8 Const General: cooperative, healthy appearing, comfortable, no acute distress and well developed Orientation/consciousness: patient oriented x3 Limitations: no limitations HEENT Head: Yes normal to inspection Ears: hearing grossly normal bilaterally General nose exam: Normal external nose present Face and sinus: Yes normal facial exam Eyes General: appearance normal, both eyes and all related structures Neck Neck: Yes normal visual inspection and Yes full ROM Resp Effort & Inspection: normal respiratory effort and able to speak in complete sentences Skin Other: Mid-right side upper back has 2 small red spots just above the upper right wing of her butterfly tattoo, no fluctuance no induration, no warmth or other signs of infection noted. One 1.0cm lesion white crusted (presumably the area treated by her search analyst), no signs of infection noted in that area Neuro General: patient oriented x3 Extrem General: Yes normal to inspection Assessment & Plan Assessment & Plan (1) Allergic reaction to bee sting: Code(s): T63.441A - Toxic effect of venom of bees, accidental (unintentional), initial encounter Plan: Vital signs are stable, patient is well-appearing, sites where she was stung by the bee are completely unremarkable. Likely her body processing the bee stings, gave her an antihistamine to use PRN at night. If no improvement in her symptoms over the next couple of days, she should follow up with her PCP for further workup. Plan See above Medications: New hydroxyzine HCl 25 mg PO BEDTIME 7 tabs 0RF Coding Level of Care Code Est Pt Level 3 (92124) Diagnoses Allergic reaction to bee sting T63.441A
== END 2023-11-06 09:33 | disposition home or self-care (01) ==
PROVIDERS: PCP Internal Medicine; Visit Provider Physician Assistant
DX: T63.441A Toxic effect of venom of bees, accidental (unintentional), initial encounter (principal)

== ENCOUNTER → 2023-11-06 08:33 | Outpatient (BNVA) | payer MEDICARE, SELFPAY | PROVIDERS: PCP Internal Medicine; Visit Provider Internal Medicine | DX: T63.441A Toxic effect of venom of bees, accidental (unintentional), initial encounter (principal) | CPT/HCPCS: 99212 ==

== ENCOUNTER 2024-04-04 08:42 | Outpatient (REF) | payer MEDICARE, SELFPAY ==
--- NOTE | ~2024-04-04 | US_ITS ---
EXAMINATION: US THYROID CLINICAL INFORMATION: Nontoxic multinodular goiter. COMPARISON: September 27, 2023. TECHNIQUE: Linear transducer grayscale and color Doppler examination with attention to the region of the thyroid. FINDINGS: SIZE: Measurements of the thyroid lobes and nodules are given in sagittal, anteroposterior and transverse dimensions respectively. Right Thyroid Lobe: 3.4 x 1.4 x 1.2 cm, volume 3.0 mL. Previous: 3.0 x 1.7 x 1.3 cm, volume: 3.5 cc. Parenchyma: The gland echotexture is heterogeneous.. Thyroid vascularity is increased. Left Thyroid Lobe: 3.6 x 1.1 x 1.3 cm, volume 2.7 mL. Previous: 3.3 x 1.0 x 1.2 cm, volume: 2.1 cc. Parenchyma: The gland echotexture is heterogeneous. Thyroid vascularity is increased. Isthmus: 0.2 cm cm in maximum AP dimension. Previous: 0.3 cm. Estimated total number of nodules greater than or equal to 1 cm: 0. Straight Knife Machine Cutter nodules are described as follows: 1. Location: Lower pole left thyroid lobe. Size: 0.8 x 0.6 x 0.6 cm, volume 0.16 mL. Previous: 0.7 x 0.5 x 0.6 cm, volume 0.11 cc. Nodule characteristics: Composition: Solid (2). Echogenicity: Hyperechoic (1). Shape: Not taller than wide (0). Margins: Smooth (0). Echogenic Foci: Punctate echogenic foci (3). ACR TI-RADS total points: 6 ACR TI-RADS category: 4 2. Location: Lower pole left thyroid lobe.. Size: 0.8 x 0.5 x 0.6 cm, volume 0.14 mL. Previous: 1.1 x 0.5 x 0.5 cm, volume: 0.13 cc. Nodule characteristics: Composition: Spongiform (0). Echogenicity: Shape: Margins: Echogenic Foci: ACR TI-RADS total points: 0 ACR TI-RADS category: 1 NODES: No lymphadenopathy is seen in the tissue surrounding the thyroid gland. US/US thyroid IMPRESSION: ACR TI RADS 4, lower pole left thyroid lobe, stable. ACR TI RADS 1, lower pole left thyroid lobe, smaller since prior exam. ACR TI-RADS RECOMMENDATION REFERENCE: Ultrasound-guided fine-needle aspiration, followup ultrasound, no further follow up. * TR1 (0 point) and TR2 (2 points): No FNA or follow up. * TR3 (3 points): FNA if more than or equal to 2.5 cm in maximum dimension, followup ultrasound in 1, 3 and 5 years if 1.5 to 2.4 cm in maximum dimension. * TR4 (4-6 points): FNA if more than or equal to 1.5 cm in maximum dimension, followup ultrasound in 1, 2, 3 and 5 years if 1 to 1.4 cm in maximum dimension. * TR5 (more than or equal to 7 points): FNA if more than or equal to 1 cm in maximum dimension, followup ultrasound every year for 5 years if 0.5 to 0.9 cm in maximum dimension. * TR3, TR4 or TR5 nodules that are below the size threshold for followup receive no follow up. Electronically signed by: Jimmy Sumner MD 04/15/2024 12:22 PM JANNETH GOULD
== END 2024-04-04 08:43 | disposition home or self-care (01) ==
LOC: HO.HMGCX 08:42
PROVIDERS: PCP Internal Medicine; Visit Provider Student in an Organized Health Care Education/Training Program
DX: E04.2 Nontoxic multinodular goiter (principal)
CPT/HCPCS: 76536

== ENCOUNTER → 2024-04-04 08:45 | Outpatient (BNV) | payer MEDICARE, SELFPAY | PROVIDERS: PCP Internal Medicine; Visit Provider Radiology Diagnostic Radiology | DX: E04.2 Nontoxic multinodular goiter (principal) | CPT/HCPCS: 76536 ==

== ENCOUNTER 2024-04-15 09:45 | Outpatient (AMB) | payer MEDICARE, SELFPAY ==
--- NOTE | 2024-04-15 09:46 | MHC.OFFVIS ---
Vital Signs 04/15/24 09:47 Height 5 ft 1.5 in Weight 132 lb 7.965 oz BMI 24.6 BP 140/80 H Blood Pressure Location Lt brachial Position Sitting Pulse 87 Pulse Source Pulse Oximeter Pulse Oximetry (%) 94 Oxygen Delivery Method Room Air Intake Visit Reasons: Thyroid nodule Intake Note: Patient present today for Thyroid nodule office visit. Financial Reporting Advisor Required: No Accompanied by: Self / Same As Patient Allergies No Known Allergies Allergy (Verified 04/15/24 09:51) Medication List - Last Reconciled 04/15/24 by Ela Summers MD ascorbic acid (vitamin C) mg PO famotidine 40 mg PO DAILY hydroxyzine HCl 25 mg PO BEDTIME lysine 500 mg PO DAILY multivitamin 1 tab PO DAILY HPI Comments Details: 79 YO F with no significant PMHx who is seen in F/U for a NTMNG. HPI from prior visit She had dysphagia for approximately 2 years. She had an extensive GI workup and was found to have a esophageal stricture which was dilated on 2 separate occasions, with no improvement in her dysphagia. She then had a thyroid US 06/22/2021 to assess if the thyroid was the cause of her dysphagia, and this revealed multiple thyroid nodules and a diffusely heterogenous thyroid gland. Dr. Hargrove repeat her thyroid US 03/10/2022 with no nodules meeting indication for FNA biopsy. and she was asked to follow up with PCP for repeat US surveillance. Interval history 04/04/24: US thyroid , report not finalized but I reviewed the images and shows the left inferior pole mixed cystic solid almost spongiform appearance nodule is smaller in size now measuring 0.8 cm in maxmum dimension. Another left inferior pole subcentimeter nodule with calcification, we will continue to monitor this closely as based on size still doesnt meet FNA criteria. Feels like the dysphagia is somewhat better controlled since last dilation Denies any palpitations, tremors, weight loss, frequent bowel movements. Denies hair loss, dry skin, heat or cold intolerance, weight gain, confusion. Denies any history of head or neck irradiation. Denies any family history of thyroid cancer. No past biopsies Laboratory Tests 08/28/23 07:58 TSH 2.89 Thyroid US: 06/22/2021 FINDINGS: ? SIZE: Measurements of the thyroid lobes and nodules are given in sagittal, anteroposterior and transverse dimensions respectively. Right Thyroid Lobe: 3.8 x 1.4 x 1.2 cm, volume 3.3 mL. Parenchyma: The gland echotexture is heterogeneous. Thyroid vascularity is increased. Left Thyroid Lobe: 3.7 x 1.0 x 1.4 cm, volume 2.7 mL. Parenchyma: The gland echotexture is heterogeneous. Thyroid vascularity is increased. Isthmus: 0.14 cm in maximum AP dimension. Estimated total number of nodules greater than or equal to 1 cm: 1. 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 Location: Left inferior. ?? ? Size: 1.2 x 0.6 x 0.7 cm, volume 0.25 mL. ?? ? Nodule characteristics: ?? ? Composition: Mixed cystic and solid (1). ?? ? Echogenicity: Very hypoechoic (3). ?? ? Shape: Not taller than wide (0). ?? ? Margins: Smooth (0). ?? ? Echogenic Foci: Punctate echogenic foci (3). ?? ? ACR TI-RADS total points: 7 ?? ? ACR TI-RADS category: 5 2. Location: Left inferior medial. ?? ? Size: 0.8 x 0.6 x 0.6 cm, volume 0.14 mL. ?? ? Nodule characteristics: ?? ? Composition: Solid (2). ?? ? Echogenicity: Hyperechoic (1). ?? ? Shape: Not taller than wide (0). ?? ? Margins: Smooth (0). ?? ? Echogenic Foci: Punctate echogenic foci (3). ?? ? ACR TI-RADS total points: 6 ?? ? ACR TI-RADS category: 4 3. Location: Left inferior medial. ?? ? Size: 0.6 x 0.3 x 0.4 cm, volume 0.04 mL. ?? ? Nodule characteristics: ?? ? Composition: Mixed cystic and solid (1). ?? ? Echogenicity: Cannot be determined (1). ?? ? Shape: Not taller than wide (0). ?? ? Margins: Smooth (0). ?? ? Echogenic Foci: Punctate echogenic foci (3). ?? ? ACR TI-RADS total points: 5 ?? ? ACR TI-RADS category: 4 4. Location: Left inferior. ?? ? Size: 0.4 x 0.3 x 0.3 cm, volume 0.01 mL. ?? ? Nodule characteristics: ?? ? Composition: Cystic(0). ?? ? ACR TI-RADS total points: 0 ?? ? ACR TI-RADS category: 1 NODES: No lymphadenopathy is seen in the tissue surrounding the thyroid gland. ADDITIONAL FINDINGS: There is a focal high-grade pericolic area inferior to the left lobe. This measures 0.8 x 0.4 x 0.6 cm. It is uncertain whether this represents a lymph node. COUNT INCLUDES THE [facility] Medical History (Updated 11/06/23 @ 09:27 by Lashonda Sutton PA-C) Vitamin D deficiency Multinodular thyroid Thyroid nodule Anxiety Dysphagia Normal breast exam Bladder prolapse, female, acquired Esophageal stricture Surgical History S/P hysterectomy Family History Father No problems noted. 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 Housing: House Patient Tobacco Use Status: Former Tobacco user Years Smoked: 15 years e-Cigarette/Vaping Use: Never Used Current occupational status: employed Cognitive needs: No Hearing needs: No Vision needs: Yes Physical Exam Vital Signs: Last Vital Signs Pulse 87 04/15/24 09:47 BP 140/80 H 04/15/24 09:47 Pulse Ox 94 04/15/24 09:47 Oxygen Delivery Method Room Air 04/15/24 09:47 BMI result Body Mass Index 24.6 Assessment & Plan Assessment & Plan (1) Multinodular thyroid: Code(s): E04.2 - Nontoxic multinodular goiter Category: Medical Plan: 79-year-old female with no personal history of head or neck radiation, no family history of thyroid cancer, who is coming in today for follow up of nontoxic nodular goiter. Ultrasound in 2021 revealed left-sided thyroid nodules, mostly subcentimeter in size, subsequently repeat ultrasound by Dr. Hargrove in 2022 did not show any nodules, hence she has never had an FNA. She has longstanding difficulty swallowing but has history of esophageal strictures and has undergone multiple dilatations, she says these are more controlled now. ultrasound from October 13 shows a suspicious appearing 1 cm left lobe nodule, TR 5 due to punctate echogenic foci. When I reviewed the images, this is mixed cystic solid nodule, with almost spongiform appearance and the echogenic foci could represent colloid. It is however taller than wide on the transverse section, making it more suspicious. 04/04/24: US thyroid , report not finalized but I reviewed the images and shows the left inferior pole mixed cystic solid almost spongiform appearance nodule is smaller in size now measuring 0.8 cm in maxmum dimension. Another left inferior pole subcentimeter nodule with calcification, we will continue to monitor this closely as based on size still doesnt meet FNA criteria. I explained that it is common to have thyroid nodules. About 95% of the time these nodules are benign. However if the nodule is > 1 cm in size or suspicious on ultrasound then a fine need aspiration biopsy is recommended. At this point given subcentimeter size of these nodules, we will continue to monitor them closely. I will have her repeat an ultrasound in another 6 months. Plan: -ordered ultrasound thyroid in 6 months -ordered TSH, reflex free T4 to be done in 6 months -follow up in 7 months with me in office after to discuss results Plan See above Orders: Orders TSH reflex Free T4 6 Months E04.2 - Nontoxic multinodular goiter US thyroid 6 Months E04.2 - Nontoxic multinodular goiter Patient Instructions: Do labs and ultrasound thyroid in 6 months a few weeks prior to my follow up Coding Level of Care Code Est Pt Level 3 (16804) Diagnoses Multinodular thyroid E04.2
[2024-04-15 09:47] VITALS: BP 140/80; PULSE 87; O2SAT 94; BMI 24.6
== END 2024-04-15 10:11 | disposition home or self-care (01) ==
PROVIDERS: PCP Internal Medicine; Visit Provider Student in an Organized Health Care Education/Training Program
DX: E04.2 Nontoxic multinodular goiter (principal)
CPT/HCPCS: 99213

== ENCOUNTER → 2024-04-15 09:45 | Outpatient (BNVA) | payer MEDICARE, SELFPAY | PROVIDERS: PCP Internal Medicine; Visit Provider Student in an Organized Health Care Education/Training Program | DX: E04.2 Nontoxic multinodular goiter (principal) | CPT/HCPCS: 99212 ==

== ENCOUNTER 2024-05-31 07:20 | Outpatient (REF) | payer MEDICARE, SELFPAY ==
[2024-05-31 11:09] LABS: Appearance Urine Cloudy; Color Urine Yellow; Glucose Urine UA Negative (Negative); Leukocyte Esterase Urine Moderate (2+) (Negative); Nitrite Urine Negative (Negative); PH 8.5 (5.0-9.0); UMIC TRIGGER UACC YES; Urine Blood Small (1+) (Negative); Urine Ketones Negative (Negative); Urine Protein 100 (2+) mg/dL (Neg-Trace)
[2024-05-31 11:16] LABS: Bacteria Urine 3+ (None Seen); Hyaline Casts Urine 0-2 /LPF (0-2); Squamous Epithelial Cell Urine 0-2 /HPF (0-2); UACC Culture Trigger YES; WBC Urine >50 /HPF (0-5)
== END 2024-05-31 07:21 | disposition home or self-care (01) ==
LOC: HO.HMGCLDS 07:20
PROVIDERS: PCP Internal Medicine; Visit Provider Internal Medicine
DX: R30.0 Dysuria (principal)
CPT/HCPCS: 81001; 81003; 87086; 87088; 87186

== ENCOUNTER 2024-06-13 09:37 | Outpatient (AMB) | payer MEDICARE, SELFPAY ==
[2024-06-13 09:47] VITALS: BP 126/78; PULSE 86; O2SAT 99
--- NOTE | 2024-06-13 09:47 | AM.OFFWIN_ITS ---
Intake Vital Signs 06/13/24 09:47 06/13/24 09:50 06/13/24 09:51 06/13/24 09:52 Weight 130 lb BP 126/78 120/80 138/90 H 140/80 H Blood Pressure Location Lt brachial Lt brachial Lt brachial Lt brachial Position Sitting Supine Sitting Standing Pulse 86 94 91 99 Pulse Source Pulse Oximeter Pulse Oximeter Pulse Oximeter Pulse Oximeter Pulse Oximetry (%) 99 93 95 98 Oxygen Delivery Method Room Air Room Air Room Air Room Air Intake Visit Reasons: EP dizzy when laying down/getting up Intake Note: Patient here for dizziness when standing up from laying down which has started a couple days ago but is not all the time. Patient Tobacco Use Status: Former Tobacco user Allergies No Known Allergies Allergy (Verified 06/13/24 09:48) Do you need a note to return to daycare/school/sports/work: No HPI HPI Comments History of Present Illness Details History of Present Illness - The patient is a 79-year-old female pr esenting with dizziness that occurs when moving from a prone position to sitting or standing, particularly exacerbated by head movements toward the right. - This symptom onset a few days ago and is not accompanied by nausea, headaches, LOC or chest pain. - Past medical history includes a comple nicholas course of antibiotics for a urinary tract infection, which has resolved. - Patient is traveling to [place] in one week. - The patient has a history of frequent throat clearing, which is a chronic issue. Physical Exam General: Cooperative, healthy appearing, comfortable, no acute distress and well developed Orientation: Patient oriented x3 Limitations: No limitations Head: Normal to inspection Ears: Hearing grossly normal bilaterally, EAC and TMs normal bilaterally Nose: Normal External nose present Face and sinus: Normal facial exam Mouth: posterior oropharynx with erythema and slight cobblestoning Eyes: Appearance normal, both eyes and all related structures Neck: Normal visual inspection and Yes full ROM Respiratory: Normal respiratory effort and able to speak in complete sentences. Skin: No rashes or lesions noted Neuro: Patient oriented x3, dizziness with laying and turning head to right, no dizziness when she turns head to left while laying flat Extremities: Normal to inspection [facility] Medical History (Updated 06/13/24 @ 10:10 by Lashonda Sutton PA-C) Vitamin D deficiency Multinodular thyroid Thyroid nodule Anxiety Dysphagia Normal breast exam Bladder prolapse, female, acquired Esophageal stricture Surgical History S/P hysterectomy Family History Father No problems noted. 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 Housing: House Patient Tobacco Use Status: Former Tobacco user Years Smoked: 15 years e-Cigarette/Vaping Use: Never Used Current occupational status: employed Cognitive needs: No Hearing needs: No Vision needs: Yes Review of Systems Const All systems reviewed & are unremarkable except as noted in HPI and below Physical Exam Vital Signs: Last Vital Signs Pulse 99 06/13/24 09:52 BP 140/80 H 06/13/24 09:52 Pulse Ox 98 06/13/24 09:52 Oxygen Delivery Method Room Air 06/13/24 09:52 Assessment & Plan Assessment & Plan (1) Benign paroxysmal positional vertigo of right ear: Code(s): H81.11 - Benign paroxysmal vertigo, right ear Plan: For the diagnosed Benign Paroxysmal Positional Vertigo BPPV, I suggest performing home exercises such as the Akil maneuver thrice daily before bed, ensuring safety with remote supervision. I gave the patient a handout with very clear instructions on performing the Akil maneuver at home. The observed mild cobblestoning in the throat suggests allergic rhinitis, for which an antihistamine is recommended. The patient is advised to elevate her head during sleep and avoid positions aggravating dizziness, ensuring symptom resolution before traveling to [place]. If symptoms persist, vestibular rehabilitation may be considered subsequently, patient should follow up with her PCP. Patient was informed and verbally consented to the use of an ambient scribe for clinic note documentation during this visit. Coding Level of Care Code Est Pt Level 3 (28952) Diagnoses Benign paroxysmal positional vertigo of right ear H81.11
[2024-06-13 09:50] VITALS: BP 120/80; PULSE 94; O2SAT 93
[2024-06-13 09:51] VITALS: BP 138/90; PULSE 91; O2SAT 95
[2024-06-13 09:52] VITALS: BP 140/80; PULSE 99; O2SAT 98
== END 2024-06-13 10:15 | disposition home or self-care (01) ==
PROVIDERS: PCP Internal Medicine; Visit Provider Physician Assistant
DX: H81.11 Benign paroxysmal vertigo, right ear (principal)

== ENCOUNTER → 2024-06-13 09:37 | Outpatient (BNVA) | payer MEDICARE, SELFPAY | PROVIDERS: PCP Internal Medicine; Visit Provider Physician Assistant | DX: H81.11 Benign paroxysmal vertigo, right ear (principal) | CPT/HCPCS: 99212 ==

== ENCOUNTER 2024-09-12 06:22 | Outpatient (REF) | payer MEDICARE, SELFPAY ==
[2024-09-12 10:18] LABS: MANUAL DIFF FLAG NO
[2024-09-12 10:26] LABS: Hematocrit 39.9 % (37.0-47.0); Hemoglobin 13.7 g/dl (12.0-16.0); Imm Gran Abs Auto 0.01 X10*3/uL (0.00-0.03); Imm Gran Pct Auto 0.2 % (0.0-0.4); Lymphocytes Absolute Auto 3.2 X10*3/uL (1.2-4.9); Mean Corpuscular HGB Conc 34.3 g/dl (31.0-35.0); Mean Corpuscular Hemoglobin 29.9 pg (27.0-33.0); Mean Corpuscular Volume 87.1 fL (80.0-98.0); NRBC Abs Auto 0.000 X10*3/uL (0.0-0.012); NRBC Pct Auto 0.0 /100WBC (0.0-0.2); Platelet Count 204 X10*3/uL (160-400); Red Blood Count 4.58 X10*6/uL (4.20-5.50); White Blood Count 6.1 X10*3/uL (4.8-10.8)
[2024-09-12 10:51] LABS: Alanine Aminotransferase 14 U/L (0-31); Albumin Level 4.0 g/dL (3.5-5.0); Alkaline Phosphatase 65 U/L (39-117); Anion Gap 13 (12-20); Aspartate Amino Transferase 21 U/L (5-31); Blood Urea Nitrogen 11 mg/dL (9-16); Calcium 8.9 mg/dL (8.4-10.2); Carbon Dioxide 25 mmol/L (22-29); Chloride 110 mmol/L (96-108); Cholesterol 171 mg/dL (<200); Estimated Glomerular Filt Rate > 60; HDL Cholesterol 42 mg/dL (>40); Potassium 3.7 mmol/L (3.3-5.1); Sodium 144 mmol/L (135-145); Total Protein 6.6 g/dL (6.5-8.0); Triglycerides 160 mg/dL (<150)
== END 2024-09-12 06:23 | disposition home or self-care (01) ==
LOC: HO.HMGCLDS 06:22
PROVIDERS: PCP Internal Medicine; Visit Provider Internal Medicine
DX: Z00.00 Encounter for general adult medical examination without abnormal findings (principal); K22.2 Esophageal obstruction; E55.9 Vitamin D deficiency, unspecified
CPT/HCPCS: 36415; 80053; 80061; 82306; 84443; 85025

== ENCOUNTER 2024-09-13 06:15 | Outpatient (REF) | payer MEDICARE, SELFPAY ==
[2024-09-13 11:14] LABS: Appearance Urine Clear; Glucose Urine UA Negative (Negative); PH 7.0 (5.0-9.0); Specific Gravity - Urine 1.010 (1.005-1.025); UMIC TRIGGER UACC YES
== END 2024-09-13 06:16 | disposition home or self-care (01) ==
LOC: HO.HMGCLNP 06:15
PROVIDERS: PCP Internal Medicine; Visit Provider Internal Medicine
DX: Z00.00 Encounter for general adult medical examination without abnormal findings (principal); R30.0 Dysuria; E55.9 Vitamin D deficiency, unspecified; K22.2 Esophageal obstruction
CPT/HCPCS: 81001; 81003

== ENCOUNTER 2024-09-19 08:12 | Outpatient (AMB) | payer MEDICARE, SELFPAY ==
[2024-09-19 08:15] VITALS: BP 122/74; PULSE 81; RESP 18; TEMP 36.7; O2SAT 97; BMI 24.0
--- NOTE | 2024-09-19 08:15 | MHC.PC.OV ---
Vital Signs 09/19/24 08:15 Height 5 ft 1.5 in Weight 129 lb BMI 24.0 BP 122/74 Blood Pressure Location Lt brachial Position Sitting Respiration 18 Pulse 81 Pulse Source Pulse Oximeter Temp 98.0 F Temp Source Oral Pulse Oximetry (%) 97 Oxygen Delivery Method Room Air Intake Visit Reasons: PE Intake Note: Pt is here today for PE. Allergies No Known Allergies Allergy (Verified 09/19/24 08:16) Medication List - Last Reconciled 09/19/24 by Kizzy Thorpe MD ascorbic acid (vitamin C) mg PO famotidine 40 mg PO DAILY lysine 500 mg PO DAILY multivitamin 1 tab PO DAILY Tobacco use date assessed: 09/19/24 Fall risk assessment: No Falls in past year Last assessed Fall Risk: 09/19/24 Dental Screening Dental Screen Date: 09/19/24 Did you have a dental visit in the last 12 months?: Yes Did you have a dental problem in the last 6 months where you did not have access to dental care?: No Was dental information given to patient?: Patient has dentist HPI PE HPI Details Patient presents for physical. She reports symptoms of positional vertigo for the last month. Patient has been doing home exercises and is feeling slightly better. She denies any weakness or numbness in extremities or change in the balance. Patient reports recurrent symptoms of intermittent dysphagia once or twice a month after eating meat like steak. Patient has a history of esophageal dilatation for Schatzki ring and she is established with Dr. Joel. Patient denies odynophagia, hematochezia melena [facility] Medical History (Updated 09/19/24 @ 10:36 by Kizzy Thorpe MD) Vitamin D deficiency Multinodular thyroid Thyroid nodule Anxiety Dysphagia Normal breast exam Bladder prolapse, female, acquired Esophageal stricture Surgical History (Updated 09/19/24 @ 08:21 by MINOO Abraham) History of bladder surgery S/P hysterectomy Family History Father No problems noted. 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 1. Little interest or pleasure in doing things: not at all 2. Feeling down, depressed, or hopeless: not at all 3. Trouble falling or staying asleep, or sleeping too much: not at all 4. Feeling tired or having little energy: not at all 5. Poor appetite or overeating: not at all 6. Feeling bad about yourself - or that you are a failure or have let yourself or your family down: not at all 7. Trouble concentrating on things, such as reading the newspaper or watching television: not at all 8. Moving or speaking so slowly that other people could have noticed. Or the opposite - being so fidgety or restless that you have been moving around a lot more than usual: not at all 9. Thoughts that you would be better off or of hurting yourself in some way: not at all Total score: 0 Depression Screening Interpretation: Negative Depression Screening Done: Yes 58294 - PHQ-9 Billing: Yes Source: Developed by Drs. Rd Farley, Seble Motta, Darshan Robbins and colleagues, with an educational amanda from [employer]. Thrive Questionnaire Date Thrive assessed: 09/19/24 I am a: Patient What is your living situation today?: I have a steady place to live Within the past 12 months, did the food you bought not last and you didn't have the money to get more?: Never true Within the past 12 months, did you worry whether your food would run out before you got money to buy more?: Never true Do you have trouble paying for medicines?: No Do you have trouble getting transportation to medical appointments?: No Do you have trouble paying your heating and electricity bill?: No Do you have trouble taking care of your child, family member or friend?: No Do you have trouble with day-to-day activities such as bathing, preparing meals, shopping, managing finances, etc.?: No Are you currently unemployed and looking for a job?: No Are you interested in more education?: No Please select the resources that you would like help with: None Currently or been in a relationship where the following occur: No concerns reported THRIVE Score: 0 AUDIT C Alcohol Use Questionnaire (AUDIT-C) 1. How often do you have a drink containing alcohol?: Never 3. How often do you have six or more drinks on one occasion?: Never Total Score: 0 ROSAMARIA-7 AMB Questionnaire ROSAMARIA-7 Date ROSAMARIA - 7 assessed: 09/19/24 Feeling nervous, anxious, or on edge: 0 = Not at all Not being able to stop or control worryin = Not at all Worrying too much about different things: 0 = Not at all Trouble relaxin = Not at all Being so restless that it is hard to sit still: 0 = Not at all Becoming easily annoyed or irritable: 0 = Not at all Feeling afraid as if something awful might happen: 0 = Not at all Total ROSAMARIA-7 score (0-4 normal; 5-9 mild; 10-14 moderate; 15-21 severe): 0 Source: Developed by Drs. Rd Farley, Seble Motta, Darshan Robbins and colleagues, with an educational amanda from [employer]. ROSAMARIA-7 Assessment Billing ROSAMARIA-7 Assessment Tool: ROSAMARIA-7 Assessment 41382 Review of Systems Const All systems reviewed & are unremarkable except as noted in HPI and below Eyes Reports no additional complaints ENT Reports no additional complaints Card Reports no additional complaints Resp Reports no additional complaints GI Reports no additional complaints Reports no additional complaints Physical exam (Primary Care) Vital Signs: Last Vital Signs Temp 98.0 F 09/19/24 08:15 Pulse 81 09/19/24 08:15 Resp 18 09/19/24 08:15 BP 122/74 09/19/24 08:15 Pulse Ox 97 09/19/24 08:15 Oxygen Delivery Method Room Air 09/19/24 08:15 BMI result Body Mass Index 24.0 Tobacco/Smoking Status: Tobacco use Status Tobacco use date assessed 09/19/24 09/19/24 08:22 Patient Tobacco Use Status Former Tobacco user 09/19/24 08:22 e-Cigarette/Vaping Use Never Used 09/19/24 08:22 PHQ-9: PHQ-9 Score PHQ-9: Total score 0 09/19/24 08:22 Depression Screening Interpretation: Negative Thrive Assessment: Date of Thrive Assessment Date Thrive assessed 09/19/24 09/19/24 08:22 Currently or been in a relationship where the following occur: No concerns reported Const General: no acute distress HENMT Head: Yes normal to inspection Ears: hearing grossly normal bilaterally Mouth: Normal oral and palatal mucosa present Throat: Yes posterior oropharynx normal Eyes General: appearance normal, both eyes and all related structures Neck Neck: Yes no lymphadenopathy and Yes supple Resp Effort & Inspection: normal respiratory effort Auscultation: clear to auscultation bilaterally Cardio Rhythm: regular rhythm Heart sounds: S1 normal heart sound present and S2 normal heart sound present GI Inspection: Yes normal to inspection Palpation (GI): Soft to palpation Percussion: Yes normal to percussion Auscultation: normal bowel sounds Coding Level of Care Code Est Pt Prev Care >65y(80327) Diagnoses Thyroid nodule E04.1 Esophageal stricture K22.2 Dysphagia R13.10 Annual physical exam Z00.00 Additional Codes ROSAMARIA-7 Assessment Billing - ROSAMARIA-7 Assessment Tool: ROSAMARIA-7 Assessment 78399 ([id number]) PHQ-9 - 94480 - PHQ-9 Billing: Yes ([id number]) Assessment & Plan Assessment & Plan (1) Thyroid nodule: Comment: thyroid ultrasound to follow-up on small thyroid nodules, established with [facility] Code(s): E04.1 - Nontoxic single thyroid nodule Category: Medical Plan: Follow-up with endocrinology (2) Esophageal stricture: Comment: Jim Joel S/P EGD dilation 02/07, 05/10, small hiatal hernia s/p dilation 2023 Code(s): K22.2 - Esophageal obstruction Category: Medical Plan: Patient will call Dr. Joel to schedule follow-up visit (3) Dysphagia: Code(s): R13.10 - Dysphagia, unspecified Category: Medical Plan: Patient was advised to try Prilosec instead of Pepcid, eat small frequent meals and avoid large pieces of meat (4) Annual physical exam: Code(s): Z00.00 - Encounter for general adult medical examination without abnormal findings Category: Medical Plan: Well-balanced diet regular physical activity discussed with the patient return in 1 year Orders: Orders Comprehensive [place]. Panel Fast 1 Year E55.9 - Vitamin D deficiency, unspecified, Z00.00 - Encounter for general adult medical examination without abnormal findings Complete Blood Count Auto Diff 1 Year E55.9 - Vitamin D deficiency, unspecified, Z00.00 - Encounter for general adult medical examination without abnormal findings Lipid Panel 1 Year E55.9 - Vitamin D deficiency, unspecified, Z00.00 - Encounter for general adult medical examination without abnormal findings Vitamin D 25-OH Total 1 Year E55.9 - Vitamin D deficiency, unspecified, Z00.00 - Encounter for general adult medical examination without abnormal findings
--- OUTSIDE RECORDS SUMMARY | 2024-09-19 08:21 | XMS_ITS | Clinical Summary ---
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 Not on josé miguel e 09/19/2022 Are you concerned about learning? Not on file 09/19/2022 No 09/19/2022 No 09/19/2022 Digital Access Answer Date Recorded No 09/19/2022 No 09/19/2022 Reliable internet access at home? Not on file 09/19/2022 Device with a working camera? Not on file Comments Unknown Sex and Gender Information Value Date Recorded Sex Assigned at Not on file Legal Sex Female 2:00 PM EDT Gender Identity Not on file Sexual Orientation Not on file Plan of Treatment Not on file Medical Devices Not on file Insurance [employer] [place] [place] [place] [employer] Care Teams Tailor Helper Relationship Specialty Start Date End Date Kizzy Thorpe MD 1960 [facility] [address] [place] [id number] PCP - General Internal Medicine 09/19/22 Additional Source Comments The information contained in this document represents components of the legal health record. It is not the complete legal health record.[facility]
== END 2024-09-19 08:59 | disposition home or self-care (01) ==
LOC: HO.HMCC 08:13
PROVIDERS: PCP Internal Medicine; Visit Provider Internal Medicine
DX: E04.1 Nontoxic single thyroid nodule (principal); K22.2 Esophageal obstruction; R13.10 Dysphagia, unspecified; Z00.00 Encounter for general adult medical examination without abnormal findings

== ENCOUNTER → 2024-09-19 08:12 | Outpatient (BNVA) | payer MEDICARE, SELFPAY | PROVIDERS: PCP Internal Medicine; Visit Provider Internal Medicine | DX: Z00.00 Encounter for general adult medical examination without abnormal findings (principal); E04.1 Nontoxic single thyroid nodule; K22.2 Esophageal obstruction; R42 Dizziness and giddiness; R13.10 Dysphagia, unspecified; E55.9 Vitamin D deficiency, unspecified | CPT/HCPCS: 96127; 99397 ==

== ENCOUNTER 2024-10-16 10:12 | Outpatient (REF) | payer MEDICARE, SELFPAY ==
--- NOTE | ~2024-10-16 | US_ITS ---
EXAMINATION: US THYROID CLINICAL INFORMATION: Nontoxic multinodular goiter. COMPARISON: April 04, 2024 TECHNIQUE: Linear transducer grayscale and color Doppler examination with attention to the region of the thyroid. FINDINGS: SIZE: Measurements of the thyroid lobes and nodules are given in sagittal, anteroposterior and transverse dimensions respectively. Right Thyroid Lobe: 3.7 x 1.7 x 1.4 cm, volume 4.5 mL. Previous: 3.4 x 1.4 x 1.2, volume: 3.0 cc. Parenchyma: The gland echotexture is heterogeneous. Thyroid vascularity is normal. Left Thyroid Lobe: 3.6 x 1.2 x 1.4 cm, volume 3.1 mL. Previous: 3.6 x 1.1 x 1.3 cm, volume: 2.7 cc. Parenchyma: The gland echotexture is heterogeneous. Thyroid vascularity is normal. Isthmus: 0.3 cm in maximum AP dimension. Previous: 0.2 cm. Estimated total number of nodules greater than or equal to 1 cm: 0. [employer] nodules are described as follows: 1. Location: Lower pole left thyroid lobe. Size: 0.7 x 0.5 x 0.6 cm, volume 0.11 mL. Previous: 0.8 x 0.5 x 0.6 cm, volume 0.14 cc. Nodule characteristics: Composition: Spongiform (0). Echogenicity: Shape: Margins: Echogenic Foci: ACR TI-RADS total points: 0 ACR TI-RADS category: 1 2. Location: Lower pole left thyroid lobe. Size: 0.6 x 0.6 x 0.5 cm, volume 0.1 mL. Previous: 0.8 x 0.6 x 0.6 cm, volume 0.16 cc. Nodule characteristics: Composition: Solid (2). Echogenicity: Hypoechoic (2). Shape: Taller than wide (3). Margins: Smooth (0). Echogenic Foci: Punctate echogenic foci (3). ACR TI-RADS total points: 10 ACR TI-RADS category: 5 3. Location: Midportion left thyroid lobe. Size: 0.4 x 0.3 x 0.3 cm, volume 0.2 mL. Nodule characteristics: Composition: Cystic(0). Echogenicity: Anechoic (0). Shape: Not taller than wide (0). Margins: Smooth (0). Echogenic Foci: None (0). ACR TI-RADS total points: 0 ACR TI-RADS category: 1 4. Location: Upper pole right thyroid lobe. Size: 0.2 x 0.3 x 0.2 cm, volume 0.008 mL. Nodule characteristics: Composition: Cystic(0). Echogenicity: Anechoic (0). Shape: Not taller than wide (0). Margins: Smooth (0). Echogenic Foci: None (0). ACR TI-RADS total points: 0 ACR TI-RADS category: 1 5. Location: Upper pole right thyroid lobe. Size: 0.3 x 0.2 x 0.2 cm, volume 0.007 mL. Nodule characteristics: Composition: Cystic(0). Echogenicity: Anechoic (0). Shape: Not taller than wide (0). Margins: Smooth (0). Echogenic Foci: None (0). ACR TI-RADS total points: 0 ACR TI-RADS category: 1 NODES: No lymphadenopathy is seen in the tissue surrounding the thyroid gland. US/US thyroid IMPRESSION: ACR TI RADS 5, lower pole left thyroid lobe. Recommend biopsy ACR TI-RADS RECOMMENDATION REFERENCE: Ultrasound-guided fine-needle aspiration, followup ultrasound, no further follow up. * TR1 (0 point) and TR2 (2 points): No FNA or follow up. * TR3 (3 points): FNA if more than or equal to 2.5 cm in maximum dimension, followup ultrasound in 1, 3 and 5 years if 1.5 to 2.4 cm in maximum dimension. * TR4 (4-6 points): FNA if more than or equal to 1.5 cm in maximum dimension, followup ultrasound in 1, 2, 3 and 5 years if 1 to 1.4 cm in maximum dimension. * TR5 (more than or equal to 7 points): FNA if more than or equal to 1 cm in maximum dimension, followup ultrasound every year for 5 years if 0.5 to 0.9 cm in maximum dimension. * TR3, TR4 or TR5 nodules that are below the size threshold for followup receive no follow up. Electronically signed by: Jimmy Sumner MD 10/16/2024 10:50 AM EDT
--- OUTSIDE RECORDS SUMMARY | 2024-10-16 10:58 | XMS_ITS | Clinical Summary ---
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 It is not the complete legal health record.[facility]
== END 2024-10-16 10:13 | disposition home or self-care (01) ==
LOC: HO.HMGCX 10:12
PROVIDERS: PCP Internal Medicine; Visit Provider Student in an Organized Health Care Education/Training Program
DX: E04.2 Nontoxic multinodular goiter (principal)
CPT/HCPCS: 76536

== ENCOUNTER → 2024-10-16 10:14 | Outpatient (BNV) | payer MEDICARE, SELFPAY | PROVIDERS: PCP Internal Medicine; Visit Provider Radiology Diagnostic Radiology | DX: E04.2 Nontoxic multinodular goiter (principal) | CPT/HCPCS: 76536 ==

== ENCOUNTER 2024-11-11 10:08 | Outpatient (AMB) | payer MEDICARE, SELFPAY ==
--- NOTE | 2024-11-11 10:09 | MHC.OFFVIS ---
Vital Signs 11/11/24 10:10 Height 5 ft 1.5 in Weight 133 lb 9.602 oz BMI 24.8 BP 126/78 Blood Pressure Location Lt brachial Position Sitting Pulse 84 Pulse Source Pulse Oximeter Pulse Oximetry (%) 96 Oxygen Delivery Method Room Air Intake Visit Reasons: Multinodular thyroid Intake Note: Patient present today for Multinodular thyroid office visit. [place] Required: No Accompanied by: Self / Same As Patient Allergies No Known Allergies Allergy (Verified 11/11/24 10:12) Medication List - Last Reconciled 11/11/24 by Ela Summers MD ascorbic acid (vitamin C) mg PO cholecalciferol (vitamin D3) 50 mcg PO DAILY lysine 500 mg PO DAILY multivitamin 1 tab PO DAILY omeprazole 20 mg PO DAILY HPI Comments Details: 79 YO F with no significant PMHx who is seen in F/U for a NTMNG. HPI from prior visit She had dysphagia for approximately 2 years. She had an extensive GI workup and was found to have a esophageal stricture which was dilated on 2 separate occasions, with no improvement in her dysphagia. She then had a thyroid US 06/22/2021 to assess if the thyroid was the cause of her dysphagia, and this revealed multiple thyroid nodules and a diffusely heterogenous thyroid gland. Dr. Hargrove repeat her thyroid US 03/10/2022 with no nodules meeting indication for FNA biopsy. and she was asked to follow up with PCP for repeat US surveillance. 04/04/24: US thyroid , r I reviewed the images and shows the left inferior pole mixed cystic solid almost spongiform appearance nodule is smaller in size now measuring 0.8 cm in maxmum dimension. Another left inferior pole subcentimeter nodule with calcification, we will continue to monitor this closely as based on size still doesnt meet FNA criteria. Interval history Ultrasound thyroid 10/16/2024, I reviewed the images myself which showed bilateral subcentimeter cysts/spongiform nodule. A left lower pole 0.6 cm solid hypoechoic taller than wide nodule with punctate echogenic foci which is TR 5 category remained stable from ultrasound in March 2024. Feels like the dysphagia is somewhat better controlled since last dilation Denies any palpitations, tremors, weight loss, frequent bowel movements. Denies hair loss, dry skin, heat or cold intolerance, weight gain, confusion. Denies any history of head or neck irradiation. Denies any family history of thyroid cancer. No past biopsies Physical exam General: sitting comfortably in no acute distress HEENT: normocephalic/atraumatic, Neck: supple, Cardiac: normal heart sounds Pulm: normal breath sounds, no added breath sounds Laboratory Tests 08/28/23 07:58 TSH 2.89 Laboratory Tests 09/12/24 06:28 TSH 2.72 US THYROID 10/16/24 CLINICAL INFORMATION: Nontoxic multinodular goiter. COMPARISON: April 04, 2024 TECHNIQUE: Linear transducer grayscale and color Doppler examination with attention to the region of the thyroid. FINDINGS: SIZE: Measurements of the thyroid lobes and nodules are given in sagittal, anteroposterior and transverse dimensions respectively. Right Thyroid Lobe: 3.7 x 1.7 x 1.4 cm, volume 4.5 mL. Previous: 3.4 x 1.4 x 1.2, volume: 3.0 cc. Parenchyma: The gland echotexture is heterogeneous. Thyroid vascularity is normal. Left Thyroid Lobe: 3.6 x 1.2 x 1.4 cm, volume 3.1 mL. Previous: 3.6 x 1.1 x 1.3 cm, volume: 2.7 cc. Parenchyma: The gland echotexture is heterogeneous. Thyroid vascularity is normal. Isthmus: 0.3 cm in maximum AP dimension. Previous: 0.2 cm. Estimated total number of nodules greater than or equal to 1 cm: 0. [employer] nodules are described as follows: 1. Location: Lower pole left thyroid lobe. Size: 0.7 x 0.5 x 0.6 cm, volume 0.11 mL. Previous: 0.8 x 0.5 x 0.6 cm, volume 0.14 cc. Nodule characteristics: Composition: Spongiform (0). Echogenicity: Shape: Margins: Echogenic Foci: ACR TI-RADS total points: 0 ACR TI-RADS category: 1 2. Location: Lower pole left thyroid lobe. Size: 0.6 x 0.6 x 0.5 cm, volume 0.1 mL. Previous: 0.8 x 0.6 x 0.6 cm, volume 0.16 cc. Nodule characteristics: Composition: Solid (2). Echogenicity: Hypoechoic (2). Shape: Taller than wide (3). Margins: Smooth (0). Echogenic Foci: Punctate echogenic foci (3). ACR TI-RADS total points: 10 ACR TI-RADS category: 5 3. Location: Midportion left thyroid lobe. Size: 0.4 x 0.3 x 0.3 cm, volume 0.2 mL. Nodule characteristics: Composition: Cystic(0). Echogenicity: Anechoic (0). Shape: Not taller than wide (0). Margins: Smooth (0). Echogenic Foci: None (0). ACR TI-RADS total points: 0 ACR TI-RADS category: 1 4. Location: Upper pole right thyroid lobe. Size: 0.2 x 0.3 x 0.2 cm, volume 0.008 mL. Nodule characteristics: Composition: Cystic(0). Echogenicity: Anechoic (0). Shape: Not taller than wide (0). Margins: Smooth (0). Echogenic Foci: None (0). ACR TI-RADS total points: 0 ACR TI-RADS category: 1 5. Location: Upper pole right thyroid lobe. Size: 0.3 x 0.2 x 0.2 cm, volume 0.007 mL. Nodule characteristics: Composition: Cystic(0). Echogenicity: Anechoic (0). Shape: Not taller than wide (0). Margins: Smooth (0). Echogenic Foci: None (0). ACR TI-RADS total points: 0 ACR TI-RADS category: 1 NODES: No lymphadenopathy is seen in the tissue surrounding the thyroid gland. US/US thyroid IMPRESSION: ACR TI RADS 5, lower pole left thyroid lobe. Recommend biopsy US THYROID 04/04/24 CLINICAL INFORMATION: Nontoxic multinodular goiter. COMPARISON: September 27, 2023. TECHNIQUE: Linear transducer grayscale and color Doppler examination with attention to the region of the thyroid. FINDINGS: SIZE: Measurements of the thyroid lobes and nodules are given in sagittal, anteroposterior and transverse dimensions respectively. Right Thyroid Lobe: 3.4 x 1.4 x 1.2 cm, volume 3.0 mL. Previous: 3.0 x 1.7 x 1.3 cm, volume: 3.5 cc. Parenchyma: The gland echotexture is heterogeneous.. Thyroid vascularity is increased. Left Thyroid Lobe: 3.6 x 1.1 x 1.3 cm, volume 2.7 mL. Previous: 3.3 x 1.0 x 1.2 cm, volume: 2.1 cc. Parenchyma: The gland echotexture is heterogeneous. Thyroid vascularity is increased. Isthmus: 0.2 cm cm in maximum AP dimension. Previous: 0.3 cm. Estimated total number of nodules greater than or equal to 1 cm: 0. [employer] nodules are described as follows: 1. Location: Lower pole left thyroid lobe. Size: 0.8 x 0.6 x 0.6 cm, volume 0.16 mL. Previous: 0.7 x 0.5 x 0.6 cm, volume 0.11 cc. Nodule characteristics: Composition: Solid (2). Echogenicity: Hyperechoic (1). Shape: Not taller than wide (0). Margins: Smooth (0). Echogenic Foci: Punctate echogenic foci (3). ACR TI-RADS total points: 6 ACR TI-RADS category: 4 2. Location: Lower pole left thyroid lobe.. Size: 0.8 x 0.5 x 0.6 cm, volume 0.14 mL. Previous: 1.1 x 0.5 x 0.5 cm, volume: 0.13 cc. Nodule characteristics: Composition: Spongiform (0). Echogenicity: Shape: Margins: Echogenic Foci: ACR TI-RADS total points: 0 ACR TI-RADS category: 1 NODES: No lymphadenopathy is seen in the tissue surrounding the thyroid gland. US/US thyroid IMPRESSION: ACR TI RADS 4, lower pole left thyroid lobe, stable. ACR TI RADS 1, lower pole left thyroid lobe, smaller since prior exam. Thyroid US: 06/22/2021 FINDINGS: ? SIZE: Measurements of the thyroid lobes and nodules are given in sagittal, anteroposterior and transverse dimensions respectively. Right Thyroid Lobe: 3.8 x 1.4 x 1.2 cm, volume 3.3 mL. Parenchyma: The gland echotexture is heterogeneous. Thyroid vascularity is increased. Left Thyroid Lobe: 3.7 x 1.0 x 1.4 cm, volume 2.7 mL. Parenchyma: The gland echotexture is heterogeneous. Thyroid vascularity is increased. Isthmus: 0.14 cm in maximum AP dimension. Estimated total number of nodules greater than or equal to 1 cm: 1. [employer] nodules are described as follows: 1. Location: Left inferior. ?? ? Size: 1.2 x 0.6 x 0.7 cm, volume 0.25 mL. ?? ? Nodule characteristics: ?? ? Composition: Mixed cystic and solid (1). ?? ? Echogenicity: Very hypoechoic (3). ?? ? Shape: Not taller than wide (0). ?? ? Margins: Smooth (0). ?? ? Echogenic Foci: Punctate echogenic foci (3). ?? ? ACR TI-RADS total points: 7 ?? ? ACR TI-RADS category: 5 2. Location: Left inferior medial. ?? ? Size: 0.8 x 0.6 x 0.6 cm, volume 0.14 mL. ?? ? Nodule characteristics: ?? ? Composition: Solid (2). ?? ? Echogenicity: Hyperechoic (1). ?? ? Shape: Not taller than wide (0). ?? ? Margins: Smooth (0). ?? ? Echogenic Foci: Punctate echogenic foci (3). ?? ? ACR TI-RADS total points: 6 ?? ? ACR TI-RADS category: 4 3. Location: Left inferior medial. ?? ? Size: 0.6 x 0.3 x 0.4 cm, volume 0.04 mL. ?? ? Nodule characteristics: ?? ? Composition: Mixed cystic and solid (1). ?? ? Echogenicity: Cannot be determined (1). ?? ? Shape: Not taller than wide (0). ?? ? Margins: Smooth (0). ?? ? Echogenic Foci: Punctate echogenic foci (3). ?? ? ACR TI-RADS total points: 5 ?? ? ACR TI-RADS category: 4 4. Location: Left inferior. ?? ? Size: 0.4 x 0.3 x 0.3 cm, volume 0.01 mL. ?? ? Nodule characteristics: ?? ? Composition: Cystic(0). ?? ? ACR TI-RADS total points: 0 ?? ? ACR TI-RADS category: 1 NODES: No lymphadenopathy is seen in the tissue surrounding the thyroid gland. ADDITIONAL FINDINGS: There is a focal high-grade pericolic area inferior to the left lobe. This measures 0.8 x 0.4 x 0.6 cm. It is uncertain whether this represents a lymph node. [facility] Medical History (Updated 09/19/24 @ 10:36 by Kizzy Thorpe MD) Vitamin D deficiency Multinodular thyroid Thyroid nodule Anxiety Dysphagia Normal breast exam Bladder prolapse, female, acquired Esophageal stricture Surgical History (Updated 09/19/24 @ 08:21 by MINOO Abraham) History of bladder surgery S/P hysterectomy Family History Father No problems noted. 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 Ultrasound in 2021 revealed left-sided thyroid nodules, mostly subcentimeter in size, subsequently repeat ultrasound by Dr. Hargrove in 2022 did not show any nodules, hence she has never had an FNA. She has longstanding difficulty swallowing but has history of esophageal strictures and has undergone multiple dilatations, she says these are more controlled now especially since she has started the omeprazole recently. ultrasound from October 13 shows a suspicious appearing 1 cm left lobe nodule, TR 5 due to punctate echogenic foci. 04/04/24: US thyroid ,I reviewed the images and shows the left inferior pole mixed cystic solid almost spongiform appearance nodule is smaller in size now measuring 0.8 cm in maxmum dimension. Another left inferior pole subcentimeter nodule with calcification, we will continue to monitor this closely as based on size still doesnt meet FNA criteria. Ultrasound thyroid 10/16/2024, I reviewed the images myself which showed bilateral subcentimeter cysts/spongiform nodule. A left lower pole 0.6 cm solid hypoechoic taller than wide nodule with punctate echogenic foci which is TR 5 category remained stable from ultrasound in March 2024. I explained that it is common to have thyroid nodules. About 95% of the time these nodules are benign. However if the nodule is > 1 cm in size or suspicious on ultrasound then a fine need aspiration biopsy is recommended. At this point given subcentimeter size of these nodules, we will continue to monitor them closely. I will have her repeat an ultrasound in another 1 year. It is reassuring to see that her TR 5 nodule has remained stable in size so far. She does not have any compressive symptoms today. Plan: -ordered ultrasound thyroid to be done in September 2025 prior to follow up in October 2025 -ordered TSH, free T4 to be done prior to follow up in October 2025 - follow up in 1 year in October 2025 Plan See above Orders: Orders Free T4 (Free Thyroxine) 10/03/25 E04.2 - Nontoxic multinodular goiter, E04.9 - Nontoxic goiter, unspecified Thyroid Stimulating Hormone 10/03/25 E04.2 - Nontoxic multinodular goiter, E04.9 - Nontoxic goiter, unspecified US thyroid 10/03/25 E04.2 - Nontoxic multinodular goiter, E04.9 - Nontoxic goiter, unspecified Patient Instructions: Do ultrasound of the thyroid in September 2025, someone we will call you to schedule this, please make sure this is done a few weeks prior to your next follow up with me in October 2025 Do thyroid blood work a few days prior to your next follow up with me in October 2025, orders have been placed. Coding Level of Care Code Est Pt Level 3 (69062) Diagnoses Multinodular thyroid E04.2
[2024-11-11 10:10] VITALS: BP 126/78; PULSE 84; O2SAT 96; BMI 24.8
--- OUTSIDE RECORDS SUMMARY | 2024-11-11 12:28 | XMS_ITS | Clinical Summary ---
Author Organization [facility] Address [address] [place] [id number] Phone Care Team Providers Care Clinical Program Coordinator Name Role Phone Kizzy Thorpe MD Primary Care Provider [phone] Social History Tobacco Use Types Packs/Day Years [...] [employer] Care Teams Clinical Program Coordinator Relationship Specialty Start Date End Date Kizzy Thorpe MD [address] [place] [id number] PCP - General Internal Medicine 09/19/22 Additional Source Comments The information contained in this document represents components of the legal health record. It is not the complete legal health record.[facility]
== END 2024-11-11 10:28 | disposition home or self-care (01) ==
LOC: HO.ENCR 10:08
PROVIDERS: PCP Internal Medicine; Visit Provider Student in an Organized Health Care Education/Training Program
DX: E04.2 Nontoxic multinodular goiter (principal)
CPT/HCPCS: 99213

== ENCOUNTER → 2024-11-11 10:08 | Outpatient (BNVA) | payer MEDICARE, SELFPAY | PROVIDERS: PCP Internal Medicine; Visit Provider Student in an Organized Health Care Education/Training Program | DX: E04.2 Nontoxic multinodular goiter (principal) | CPT/HCPCS: 99212 ==